=== PATIENT | female | born 1980 | race Caucasian/White ===

== ENCOUNTER 2018-08-09 00:25 | Inpatient (IN) | payer SELFPAY ==
[2018-08-08] MEDS: Lactated Ringers 1,000 ML 50 ML IV (23:00)
[2018-08-08 23:01] VITALS: BMI 47.0
[2018-08-08 23:49] LABS: Absolute Lymphocyte Count 1.95 X10^3/ul (0.83-4.51); Absolute Neutrophil Count 4.7 X10^3/uL (2.0-7.7); Basophil# 0.03 X10^3/uL; Basophil% 0.4 % (0-1); Eosinophil# 0.06 X10^3/uL; Eosinophils% 0.8 % (0-5); Hematocrit 37.2 % (37-47); Hemoglobin 12.2 g/dl (12.0-15.0); Lymphocyte # 1.95 X10^3/ul (4.0); Lymphocyte % 26.6 % (19-41); Mean Corp Hgb Conc 32.8 g/gl (32-36); Mean Corpuscular Hgb 28.4 pg (27.0-32.0); Mean Corpuscular Volume 86.5 fL (81-99); Mean Platelet Vol. 11.2 fl (6.2-12.0); Monocyte# 0.54 X10^3/uL; Monocyte% 7.4 % (0-10); POSITIVE COUNT NO; POSITIVE DIFFERENTIAL NO; POSITIVE MORPHOLOGY NO; Platelet Count 236 K/mm3 (150-450); RBC Distribution Width CV 14.4 % (11.6-14.6); RBC Distribution Width SD 43.9 fl (35.1-43.9); White Blood Count 7.3 K/mm3 (4.4-11.0)
[2018-08-09] VITALS (23 sets, daily range): BP systolic 86–129; BP diastolic 38–74; PULSE 61–82; RESP 16–20; TEMP 36–36.6; O2SAT 94–100
--- NOTE | 2018-08-09 00:30 | PCM.HP.OB ---
- Problem List (1) Breech presentation Status: Acute History Date of Admission: 08/09/18 Final MERI: 07/30/18 Gestational age: 41 Weeks and 3 Days History of this : This is a 38 year-old, , at 41w3d weeks gestational age presents breech presentation. she denies any vb lof admits good fm no regular ctx. Allergies No Known Allergies Allergy (Verified 08/08/18 23:09) Home Medications: Home Medications Vit,Calc76/Iron/Folic [Pnv 29-1 Tablet] 1 tab PO DAILY 08/08/18 Alcohol: None Number of Fetus(es): 1 Heart Tracin moderate variability reactive no decelerations category I tracing [place]: no regular History Past Pregnancies: Past Pregnancies 5 previous term deliveries- one stillborn due to cord accident Expected Infant Delivery Method: Scheduled Section Review of Systems Constitutional: Denies: Fever, Malaise Eyes: Denies: Blurred vision, Vision Change HEENT: Denies: Head Aches, Visual Changes Cardiovascular: Denies: Chest Pain, Palpitations Respiratory: Denies: Cough, Shortness of Breath, Wheezing Gastrointestinal: Denies: Abdominal Pain, Diarrhea, Nausea, Vomiting Genitourinary: Denies: Dysuria, Hematuria Musculoskeletal: Denies: Joint Pain, Muscle pain Skin: Denies: Lesions, Rash Neurological: Denies: Blurred vision, Focal weakness, Headaches Psychiatric: Denies: Anxiety, Depression Endocrine: Denies: Heat/ Cold Intolerance Hematologic/ Lymphatic: Denies: Easy Bruising, Easy Bleeding Physical Exam General: Alert, Cooperative, No apparent distress HEENT: Atraumatic, Normocephalic. Negative for: Thyromegaly, Lymphadenopathy Cardiovascular: Regular rate Lungs: Normal air movement Abdomen: Soft, Non Tender, Gravid Neurological: Deep Tendon Reflexes 2+/4 and Symmetrical, Neuro grossly intact. 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 Negative for: Vulvar lesions Estimated gestational size: Appropriate for gestational size Presentation: Breech Cervix Dilation (cm): 2 Assessment/Plan All Active Problems Breech presentation (Acute) This is a 38 year-old, at 41 weeks gestational age breech presentation plan RLTCS for malpresentation. attempted bedside external cephalic version- pressure was applied to the abdomen and it was attempted to turn both forward and backward roll 2-3 x each and due to the pannus of the patient and the deeply seated buttox into the pelvis, the fetus was unable to be turned.
--- NOTE | 2018-08-09 00:34 | HP.PCM_ITS ---
- Problem List (1) Breech presentation Status: Acute History Date of Admission: 08/09/18 Final MERI: 07/30/18 Gestational age: 41 Weeks and 3 Days History of this : This is a 38 year-old, , at 41w3d weeks gestational age presents breech presentation. she denies any vb lof admits good fm no regular ctx. Allergies No Known Allergies Allergy (Verified 08/08/18 23:09) Home Medications: Home Medications Vit,Calc76/Iron/Folic [Pnv 29-1 Tablet] 1 tab PO DAILY 08/08/18 Alcohol: None Number of Fetus(es): 1 Heart Tracin moderate variability reactive no decelerations category I tracing [place]: no regular History Past Pregnancies: Past Pregnancies 5 previous term deliveries- one stillborn due to cord accident Expected Infant Delivery Method: Scheduled Section Review of Systems Constitutional: Denies: Fever, Malaise Eyes: Denies: Blurred vision, Vision Change HEENT: Denies: Head Aches, Visual Changes Cardiovascular: Denies: Chest Pain, Palpitations Respiratory: Denies: Cough, Shortness of Breath, Wheezing Gastrointestinal: Denies: Abdominal Pain, Diarrhea, Nausea, Vomiting Genitourinary: Denies: Dysuria, Hematuria Musculoskeletal: Denies: Joint Pain, Muscle pain Skin: Denies: Lesions, Rash Neurological: Denies: Blurred vision, Focal weakness, Headaches Psychiatric: Denies: Anxiety, Depression Endocrine: Denies: Heat/ Cold Intolerance Hematologic/ Lymphatic: Denies: Easy Bruising, Easy Bleeding Physical Exam General: Alert, Cooperative, No apparent distress HEENT: Atraumatic, Normocephalic. Negative for: Thyromegaly, Lymphadenopathy Cardiovascular: Regular rate Lungs: Normal air movement Abdomen: Soft, Non Tender, Gravid Neurological: Deep Tendon Reflexes 2+/4 and Symmetrical, Neuro grossly intact. 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 Negative for: Vulvar lesions Estimated gestational size: Appropriate for gestational size Presentation: Breech Cervix Dilation (cm): 2 Assessment/Plan All Active Problems Breech presentation (Acute) This is a 38 year-old, at 41 weeks gestational age breech presentation plan RLTCS for malpresentation. attempted bedside external cephalic version- pressure was applied to the abdomen and it was attempted to turn both forward and backward roll 2-3 x each and due to the pannus of the patient and the deeply seated buttox into the pelvis, the fetus was unable to be turned.
[2018-08-09 03:19] LABS: Bacteria 0 SEEN /hpf (None Seen); Mucous, Urine 0 SEEN /hpf (<or=2+)
[2018-08-09 03:22] LABS: Color, Urine Yellow (Yellow); Glucose, Dipstick Normal (Normal); Ketone-Dipstick Negative (Negative); Leukocyte Esterase-Dipstick 500 /ul (Negative); Nitrite-Dipstick Negative (Negative); Occult Blood-Urine 150 /ul (Negative); Protein-Dipstick Negative (Negative); Urine Bilirubin Dipstick Negative (Negative); Urine Clarity Clear (Clear); Urine Urobilinogen Normal (Normal)
[2018-08-09 03:30] LABS: Red Blood Cells-Urine 0-5 SEEN /hpf (0-5); Squamous Epithelial Cells - UA 10-25 SEEN /hpf (5-10); Transitional Epithelial - Ur 5-10 SEEN /hpf (0-5); White Blood Cells 5-10 SEEN /hpf (0-5)
[2018-08-09 04:00] LABS: Amphetamine Urine VISTA NEGATIVE (<1000 ng/mL); Barbiturate Urine VISTA NEGATIVE (< 200 ng/mL); Benzodiazepine Urine VISTA NEGATIVE (< 200 ng/mL); Cocaine Urine VISTA NEGATIVE (< 300 ng/mL); Ecstacy Urine VISTA NEGATIVE (< 500 ng/mL); Methadone Urine VISTA NEGATIVE (< 300 ng/mL); PCP Urine VISTA NEGATIVE (< 25 ng/mL); THC Urine VISTA NEGATIVE (< 50 ng/mL); Vista UDS pH Range 5
[2018-08-09 04:29] LABS: Rubella IgG 227.6 IU/mL
[2018-08-09 04:58] LABS: HIV - WCH Non-Reactive (Nonreactive)
[2018-08-09] MEDS: Sodium Citrate/Citric Acid 30 ML UDC PO (05:01)
[2018-08-09] MEDS: Lactated Ringers 1,000 ML 999 ML IV (05:01)
--- NOTE | 2018-08-09 05:36 | OP.PCM_ITS ---
Problem List (1) Breech presentation Status: Acute Report of Operation Date of Procedure: 08/09/18 Pre-Operative Diagnosis: breech Post-Operative Diagnosis: same Surgery/Procedure Performed:: LTCS flavor extractor: Benigno Boyle Type of Anesthesia:: Spinal Special Medications: none Specimen's removed: infant Drains: millan Fluids Replaced: crystalloid Description of Procedure: The patient is a 38-year-old at 41 weeks 3 days presented for breech presentation with spontaneous rupture of membranes requiring . Spinal anesthesia was placed without difficulty. Millan catheter was placed. The patient was placed in the dorsal supine position with leftward tilt. Patient was prepped and draped in the normal sterile fashion. Pfannenstiel skin incision was made with the scalpel and carried through to the underlying layer of fascia with the scalpel. Fascia was nicked in the midline and the incision extended laterally. The rectus bellies were dissected off superiorly and inferiorly with out complication both sharply and bluntly. The peritoneum was entered digitally. The incision was stretched and a low transverse uterine incision was made with the scalpel. The 's head was delivered atraumatically followed by the anterior and posterior shoulders without complication the rest of the infant delivered. The cord was clamped and cut and the infant was handed off to awaiting nurse. The placenta was delivered s pontaneously immediately following and was noted to be intact and have a three- vessel cord. The uterus was exteriorized cleared of all clots and debris, and the incision was closed in a double layer closure using #1 Monocryl. The uterus was returned to the maternal abdomen and gutters were cleared of all clots and debris. The ovaries and fallopian tubes were noted to be within normal limits. The peritoneum was closed with 3-0 Monocryl in a running fashion. Fascia was closed with 0 PDS in a running fashion. Subcutaneous tissue was copiously irrigated and the skin was closed with 3-0 Monocryl in a subcuticular fashion. Steri-Strips and Mepilex dressing were applied without complication. Patient was taken to recovery in stable condition. - Complications none - Admit VTE Documentation VTE Present on Admission: No VTE Mechan Device Prophylaxis: SCD's
[2018-08-09] MEDS: Oxytocin 30 units/NS 500 ml 30 UNITS/500 ML IV.SOLN 167 UNITS IV (05:58)
[2018-08-09 06:41] LABS: Chlamydia Trachomatis by PCR Negative (Negative); Neisserai gonorrhoeae by PCR Negative (Negative); Probe Check PASS; Sample Adequacy Control PASS; Specimen Processing Control PASS
[2018-08-09] MEDS: Lactated Ringers 1,000 ML 100 ML IV ×2 (11:36→17:28)
[2018-08-09] MEDS: Ketorolac 30 MG/ML Syringe IV ×2 (12:02→17:28)
[2018-08-09] MEDS: Enoxaparin 40 MG/0.4 ML Syringe SC (17:28)
[2018-08-10 00:05] VITALS: BP 97/45; PULSE 78; RESP 18; TEMP 36.1; O2SAT 100
[2018-08-10] MEDS: 0.9% Saline Lock 10 ML Syringe IV ×3 (00:43→12:16)
[2018-08-10] MEDS: Ketorolac 30 MG/ML Syringe IV ×3 (00:43→12:16)
[2018-08-10 01:30] LABS: Rapid Plasmin Reagin (RPR) NONREACTIVE (NONREACTIVE)
[2018-08-10 02:05] VITALS: PULSE 91; RESP 18; O2SAT 96
[2018-08-10] MEDS: Lactated Ringers 1,000 ML 100 ML IV (03:24)
[2018-08-10 04:35] VITALS: PULSE 80; RESP 18; O2SAT 96
[2018-08-10 04:49] VITALS: BP 101/54; PULSE 82; RESP 18; TEMP 36.4; O2SAT 99
[2018-08-10] MEDS: Enoxaparin 40 MG/0.4 ML Syringe SC (05:08)
[2018-08-10 05:25] LABS: Hematocrit 30.4 % (37-47); Mean Corp Hgb Conc 32.9 g/gl (32-36); Mean Corpuscular Hgb 28.2 pg (27.0-32.0); Mean Corpuscular Volume 85.6 fL (81-99); Mean Platelet Vol. 10.1 fl (6.2-12.0); Platelet Count 195 K/mm3 (150-450); RBC Distribution Width CV 14.4 % (11.6-14.6); RBC Distribution Width SD 45.4 fl (35.1-43.9); Red Blood Count 3.55 M/mm3 (4.2-5.4); White Blood Count 6.1 K/mm3 (4.4-11.0)
[2018-08-10 05:35] LABS: Scan Indicated on CBC? Y/N NO
--- NOTE | 2018-08-10 08:01 | DCINST_ITS ---
Discharge Diet: No Restrictions Discharge Activity: May Not Drive - for 2 weeks, May not drive while taking narcotic pain medications., May Shower, May Take a Tub Bath - in 7 days May resume sexual activity in: 4-6 weeks Lifting Restrictions: 20 pounds Additional Activity Instructions:: Nothing in the vagina for 4-6 weeks. You may return to work/school in 6 weeks. Call your doctor if your incision/area has: Continuous Slow Oozing, Sudden Increased Bleeding, Increased Pain/ Swelling, Increased Redness, Foul Smelling Discharge Call your doctor if you observe: Fever of 101 or Higher, Using more than one pad per hour - for 2 hours Suture Line Care: Avoid Pulling/Pushing, Avoid Pinching/Bending Cleanse incision/area with: Keep Dressing Clean & Dry Additional Instructions: If you experience any of the following, contact your healthcare provider. * Bleeding that soaks a pad every hour for 2 hours * Fever 100.4 or higher * Unrelieved incision or abdominal pain * Swelling, redness, discharge or bleeding from your incision or episiotomy site * Your incision begins to separate * Problems urinating (including inability to urinate or burning while urinating). * Visual changes * Severe headache * Flu-like symptoms * Pain or redness in one of both of your breasts * Pain, warmth, tenderness or swelling in your legs, especially the calf area * Frequent nausea and vomiting * Symptoms of depression or anxiety If you experience any of the following, call 911 or go to the nearest Emergency Room. * Chest pain * Problems breathing * Seizure activity * Partial or complete paralysis of a body part, slurred speech, weakness or drooping of the face, or a sudden inability to walk or hold your balance Allergies/Adverse Reactions: Allergies No Known Allergies Allergy (Verified 08/08/18 23:09) Medications to take at Discharge Vit,Calc76/Iron/Folic [Pnv 29-1 Tablet] 1 tab PO DAILY 08/08/18 Naproxen [Naprosyn] 250 - 500 mg PO Q8H PRN PRN #30 tab 08/10/18 Oxycodone HCl/Acetaminophen [Percocet 5-325] 1 - 2 tab PO Q4H PRN PRN 7 Days #15 tab 08/10/18 The following prescriptions were given: Oxycodone HCl/Acetaminophen [Percocet 5-325] 1 - 2 tab PO Q4H PRN PRN 7 Days #15 tab PRN Reason: Pain Naproxen [Naprosyn] 250 - 500 mg PO Q8H PRN PRN #30 tab PRN Reason: MILD PAIN Follow-Up: Call to make an appointment with your doctor for an incision check in 1-2 weeks. You will also need a 6 week post- follow up appointment. Test results from this visit will be discussed in further detail at your follow- up appointment, if applicable. Please Follow Up With: Amy Burns MD - Call to make an appointment for an incision check in 1-2 [phone] When: You will need a post- check in 6 weeks.
--- NOTE | 2018-08-10 08:01 | PCM.PN.OB ---
Subjective: doing well no complaints pain controlled no CP SOB N V ambulating well tolerating po lochia moderate, going well - Physical Exam General: Alert Vital Signs Temp Pulse Resp BP Pulse Ox 97.5 F L 82 18 101/54 L 99 08/10/18 04:49 08/10/18 04:49 08/10/18 04:49 08/10/18 04:49 08/10/18 04:49 Oxygen Delivery Method Room Air Weight: 300 lb 0.786 oz Body Mass Index (BMI) 47.0 Intake and Output for Last 24 Hours 08/08/18 08/09/18 08/10/18 23:59 23:59 23:59 Intake Total 4351 / 4351 1359 / 1359 Output Total 2800 / 2800 1800 / 1800 Balance 1551 / 1551 -441 / -441 Laboratory Tests Past 24 Hrs 08/09/18 08/10/18 03:10 05:05 WBC 6.1 RBC 3.55 L Hgb 10.0 L Hct 30.4 L MCV 85.6 MCH 28.2 MCHC 32.9 RDW 14.4 RDW Differential 45.4 H Plt Count 195 MPV 10.1 RPR NONREACTIVE Medical Necessity - Tobacco Use Smoking Status: Never smoker Assessment/Plan All Active Problems Breech presentation (Acute) s/p LTCS PPD # 1 1. routine post care 2. breast feeding- support given 3. rh positive dc home per patient's request patient declined further antibody screening due to cost of test, I discussed with her chief of internal medicine the importance of this and if she wants future testing she can always call for it
[2018-08-10 08:20] VITALS: BP 117/51; PULSE 68; RESP 16; TEMP 36.7; O2SAT 98
[2018-08-10 12:42] LABS: HEPATITIS B SURFACE AG Negative (Negative); Hep C Antibodies <0.1 s/co ratio (0.0-0.9)
[2018-08-10 15:24] VITALS: BP 127/55; PULSE 98; RESP 18; TEMP 36.9; O2SAT 96
[2018-08-10] MEDS: Acetaminophen 500 MG Tablet 1000 MG PO (15:50)
== END 2018-08-10 16:05 | disposition home or self-care (01) | DRG 788 ==
LOC: WPOUT 00:29
PROVIDERS: Admitting Provider Obstetrics & Gynecology; Referring Provider Obstetrics & Gynecology; Visit Provider Obstetrics & Gynecology
DX: O64.1XX0 Obstructed labor due to breech presentation, not applicable or unspecified (principal); Z3A.41 41 weeks gestation of pregnancy; Z37.0 Single live birth
CPT/HCPCS: 59025; 59050; 59412; 76815; 80307; 81001; 85025; 85027; 86592; 86703; 86762; 86803; 86850; 86870; 86900; 87340; 87491; 87591; 99218; J7120; A4216; G0378; J2405

== ENCOUNTER → 2020-05-22 12:14 | Outpatient (CLI) | payer SELFPAY ==
[2020-05-22 11:34] VITALS: BMI 48.9
[2020-05-22 13:01] LABS: Absolute Lymphocyte Count 1.55 X10^3/uL (0.83-4.51); Basophil# 0.03 X10^3/uL; Basophil% 0.5 % (0-1); Eosinophil# 0.05 X10^3/uL; Eosinophils% 0.8 % (0-5); Hematocrit 33.7 % (37-47); Hemoglobin 11.3 g/dL (12.0-15.0); Lymphocyte # 1.55 X10^3/ul (4.0); Lymphocyte % 25.6 % (19-41); Mean Corp Hgb Conc 33.5 g/dL (32-36); Mean Corpuscular Hgb 28.7 pg (27.0-32.0); Mean Corpuscular Volume 85.5 fL (81-99); Mean Platelet Vol. 9.8 fl (6.2-12.0); Monocyte# 0.38 X10^3/uL; Monocyte% 6.3 % (0-10); NRBC Flagged by Analyzer 0 % (0-5); Neutrophil # 3.97 X10^3/uL (2.7-7.7); Neutrophil % 65.6 % (47-70); Platelet Count 243 K/mm3 (150-450); RBC Distribution Width CV 14.2 % (11.6-14.6); RBC Distribution Width SD 43.8 fl (35.1-43.9); Red Blood Count 3.94 M/mm3 (4.2-5.4); White Blood Count 6.1 K/mm3 (4.4-11.0)
[2020-05-22 13:32] LABS: Rubella IgG Reactive (Nonreactive)
== END ==
PROVIDERS: Referring Provider Obstetrics & Gynecology; Visit Provider Obstetrics & Gynecology
DX: Z34.90 Encounter for supervision of normal pregnancy, unspecified, unspecified trimester (principal)
CPT/HCPCS: 36415; 83036; 85025; 86762; 87077; 87081; 87186

== ENCOUNTER → 2020-05-28 15:23 | Outpatient (CLI) | payer SELFPAY ==
[2020-05-22 11:34] VITALS: BMI 48.9
[2020-05-28 09:44] VITALS: BMI 49.0
--- NOTE | 2020-05-28 15:26 | US_ITS ---
STUDY: SECOND AND THIRD TRIMESTER OBSTETRICAL ULTRASOUND REASON FOR EXAM: Female, 40 years old. Anatomy. 37 weeks, 2 days. LMP: Established due date of 06/16/2020. TECHNIQUE: Transabdominal TECHNICAL QUALITY: Adequate. PRIOR ULTRASOUND: None. FINDINGS: There is a single intrauterine fetus. The fetus is in a cephalic presentation. There is demonstrated cardiac activity with a heart rate of 143 bpm. There is a normal amniotic fluid volume. The largest amniotic fluid pocket measures 8.03 cm. The amniotic fluid index (LEATHA) is 18.56 cm. The placenta is anterior in location and is not low lying. There are Grade 3 placental changes. The cervix is obscured. BIOMETRY: BPD: 8.94 cm: 36 weeks, 1 days HC: 38.81 cm: 38 weeks, 5 days AC: 34.62 cm: 38 weeks, 3 days FL: 6.8 cm: 34 weeks, 6 days CI: 74.88 FL/BPD: 76.08 FL/HC: 20.12 FL/AC: 19.65 HC/AC: 0.98 age by current US: 37 weeks, 0 days. MERI by current US: 06/18/2020. Estimated weight: 3183 grams, +/- 478 grams, 60 %. Age by LMP: 37 weeks, 2 days. MERI by LMP: 06/16/2020. ANATOMY: Gender: Male Cranium: The lateral ventricles are non-visualized. The choroid plexus is non-visualized. The cerebellum is non-visualized.. The cisterna magna is non-visualized. The face, nose and lips are not visualized. Chest: Normal 4-chamber heart. Abdomen/Pelvis: The diaphragm is non-visualized. The stomach is non-visualized. The abdominal wall is non-visualized. The cord insertion is non-visualized. The cord vessels are non-visualized. The kidneys are non-visualized. The bladder is non-visualized. Spine: Normal cervical spine. Normal thoracic spine. Normal lumbar spine. Normal sacrum. Extremities: Normal bilateral upper extremities. Only one of the lower extremities is visualized. US/OB Anatomy Scan IMPRESSION: 1. Live single intrauterine 37 weeks, 0 days. MERI is 06/18/2020. 2. EFW of 3183 g. 3. LEATHA of 18.56 cm. 4. Anterior grade 3 placenta. 5. Vertex presentation. 6. Markedly limited evaluation of anatomy due to advanced age and maternal obesity. Electronically Signed: Rick Way DO at 23:13 EST Tel [phone], Service support ,
== END ==
PROVIDERS: Referring Provider Obstetrics & Gynecology; Visit Provider Obstetrics & Gynecology
DX: Z34.90 Encounter for supervision of normal pregnancy, unspecified, unspecified trimester (principal)
CPT/HCPCS: 76805

== ENCOUNTER → 2020-05-28 | Outpatient (CLI) | payer SELFPAY ==
[2020-05-28 09:44] VITALS: BMI 49.0
== END | disposition home or self-care (01) ==
LOC: LABSPEC 12:53
PROVIDERS: Referring Provider Obstetrics & Gynecology; Visit Provider Obstetrics & Gynecology
DX: O09.93 Supervision of high risk pregnancy, unspecified, third trimester (principal); Z3A.00 Weeks of gestation of pregnancy not specified
CPT/HCPCS: 87086; 87088

== ENCOUNTER → 2020-06-04 11:53 | Outpatient (CLI) | payer SELFPAY ==
[2020-06-04 11:14] VITALS: BMI 49.4
[2020-06-04 12:52] LABS: ALB/GLOB Ratio 0.6 RATIO (0.9-2.4); AST(SGOT) 12 U/L (15-37); Alanine Aminotransfer ALT/SGPT 18 U/L (13-56); Albumin, Serum 2.5 g/dL (3.2-5.0); Alkaline Phosphatase 165 U/L (45-117); Anion Gap 7 (5-15); BUN 10 mg/dL (7-18); BUN/Creat Ratio 15.3 RATIO (10-20); Chloride 107 mmol/L (98-107); Creatinine, Serum 0.65 mg/dL (0.55-1.02); EST Glomerular Filtration Rate 108 mL/min (>60); Est Glom Filt Rate - Afr Amer 130 mL/min (>60); Globulin 4.3 g/dL (2.2-4.2); Glucose 96 mg/dL (74-106); Protein, Total 6.8 g/dL (6.4-8.2); Sodium Level 136 mmol/L (136-145)
== END ==
PROVIDERS: Visit Provider Obstetrics & Gynecology
DX: L29.9 Pruritus, unspecified (principal)
CPT/HCPCS: 36415; 80053

== ENCOUNTER 2020-06-12 00:45 | Inpatient (IN) | payer SELFPAY ==
[2020-06-11 08:55] VITALS: BMI 49.8
[2020-06-12] VITALS (55 sets, daily range): BP systolic 90–140; BP diastolic 41–78; PULSE 69–166; RESP 16–18; TEMP 35.6–37.3; O2SAT 83–100; BMI 50.1
[2020-06-12 00:41] LABS: ROM Internal Control Test YES-OK TO RESULT pt. (Internal QC)
[2020-06-12 00:42] LABS: ROM Patient Test POSITIVE (Negative)
[2020-06-12] MEDS: Lactated Ringers 1,000 ML 50 ML IV (01:30)
[2020-06-12 01:53] LABS: Mucous, Urine 0 SEEN /hpf (<or=2+); Red Blood Cells-Urine 0 SEEN /hpf (0-5)
[2020-06-12 01:57] LABS: Absolute Lymphocyte Count 1.72 X10^3/uL (0.83-4.51); Absolute Neutrophil Count 4.8 X10^3/uL (2.0-7.7); Basophil# 0.03 X10^3/uL; Basophil% 0.4 % (0-1); Color, Urine Yellow (Yellow); Eosinophil# 0.06 X10^3/uL; Eosinophils% 0.9 % (0-5); Glucose, Dipstick Normal (Normal); Hematocrit 33.3 % (37-47); Hemoglobin 11.3 g/dL (12.0-15.0); Ketone-Dipstick Negative (Negative); Leukocyte Esterase-Dipstick 100 /ul (Negative); Lymphocyte # 1.72 X10^3/ul (4.0); Lymphocyte % 24.4 % (19-41); Mean Corp Hgb Conc 33.9 g/dL (32-36); Mean Corpuscular Hgb 28.8 pg (27.0-32.0); Mean Corpuscular Volume 84.7 fL (81-99); Mean Platelet Vol. 10.1 fl (6.2-12.0); Monocyte# 0.33 X10^3/uL; Monocyte% 4.7 % (0-10); NRBC Flagged by Analyzer 0 % (0-5); Neutrophil # 4.82 X10^3/uL (2.7-7.7); Neutrophil % 68.3 % (47-70); Nitrite-Dipstick Negative (Negative); Occult Blood-Urine Negative /ul (Negative); Platelet Count 250 K/mm3 (150-450); Protein-Dipstick Negative (Negative); RBC Distribution Width CV 14.2 % (11.6-14.6); RBC Distribution Width SD 43.6 fl (35.1-43.9); Red Blood Count 3.93 M/mm3 (4.2-5.4); Urine Bilirubin Dipstick Negative (Negative); Urine Clarity Clear (Clear); Urine Urobilinogen Normal (Normal); White Blood Count 7.1 K/mm3 (4.4-11.0)
[2020-06-12 02:03] LABS: Bacteria RARE /hpf (None Seen); Squamous Epithelial Cells - UA 0-5 SEEN /hpf (5-10); White Blood Cells 10-25 SEEN /hpf (0-5)
[2020-06-12 02:11] LABS: Amphetamine Urine VISTA NEGATIVE (<1000 ng/mL); Barbiturate Urine VISTA NEGATIVE (< 200 ng/mL); Benzodiazepine Urine VISTA NEGATIVE (< 200 ng/mL); Cocaine Urine VISTA NEGATIVE (< 300 ng/mL); Ecstacy Urine VISTA NEGATIVE (< 500 ng/mL); Methadone Urine VISTA NEGATIVE (< 300 ng/mL); PCP Urine VISTA NEGATIVE (< 25 ng/mL); THC Urine VISTA NEGATIVE (< 50 ng/mL); Vista UDS pH Range 5
[2020-06-12 03:27] LABS: Chlamydia Trachomatis by PCR Negative (Negative); Neisserai gonorrhoeae by PCR Negative (Negative); Probe Check PASS; Sample Adequacy Control PASS; Specimen Processing Control PASS
[2020-06-12] MEDS: Oxytocin 30 units/NS 500 ml 30 UNITS/500 ML IV.SOLN IV (06:06)
--- NOTE | 2020-06-12 08:31 | HP.PCM_ITS ---
- Problem List (1) Full-term premature rupture of membranes Status: Acute (2) 37 weeks gestation of Status: Acute Comment: electronic covid test ordered 06/01/20 (3) Generalized pruritus Status: Acute Comment: cmp and bile acids ordered 06/04, reviewed fm precautions (4) History of delivery Status: Acute Comment: 3 then cs for breech by SM. plan TOLAC (5) Obesity affecting in third trimester Status: Acute (6) Positive GBS test Status: Acute Comment: plan PCN in labor (7) Status: Acute Qualifiers: Comment: urine culture at next visit. t and s, cbc ,rubella ,glucose HgA1c. RADHA from [facility] due to anemia (8) Supervision of high risk in third trimester Status: Acute Comment: PRR (limited, open to all at delivery including covid) RADHA [facility] 36 weeks. 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 Jerri Castaneda MD) Smoking Status: Never smoker alcohol intake: never substance use type: does not use caffeine: Yes Type: tea what type of physical activity do you participate in: none seatbelt use: always do you feel safe at home: Yes additional social history: Josse Pregancy History 17 Elective abortions 0 Hx Para 5 Spontaneous abortions 12 Hx # Term Pregnancies 5 Ectopic pregnancies 0 Hx # Pregnancies 0 Multiple births 0 # of living children 5 Past Pregnancies Del. Date Name GA/Weeks Outcome Route Bth Weight Gen Labor Lgth Anesthesia Del Locatn Provider FOB Unknown 2018 Dalila 42 live - full term C- section Female [facility] SM SM Unknown 2005 still still Unknown 2006 Germania 42 live - full term NS VD [place] 2006 Jo[place] 37 live - full term NS VD [place] Unknown 2010 Coby 40 live - full term NS VD Female [facility] Unknown 2012 Alize 42 live - full term NS VD Female [employer] [facility] HPI 39WK OB : Details: GIORGI HURLEY is a 40 year old who presents for routine OB visit. OB Visit MERI Calculator Estimated Delivery Date Method Current WG Current Estimate 06/16/20 LMP (Certain) 39w 2d Other Estimates 06/15/20 Manual 39w 3d Expected Delivery Route/Plan TOLAC late transfer of care from [place] [facility] due to anemia. previous x 3 then cs for breech patient counseled regarding risks/benefits of trial of labor versus repeat . ACOG/uptodate education given to patient. 54 % likelihood of success per calculator TOLAC consent form signed: yes Labor Preferences- CB/BF classes: NA labor support person: Josse labor intervention preferences: open to standard interventions pain management options preferred: desires natural labor, open to having epidural placed but not dosed cut cord/dad catch: yes :[] PP control planned: [] discussed possible routes of delivery and associated risks: discussed possible delivery modalities and possible indications for each including R/B/A of , VAVD, FAVD, and CS. questions answered. special requests: none Specific Issue/Plans flu vaccine: decline tdap vaccine: decline rhogam: na LARC form signed: [] movement and labor precautions reviewed. Problem list reviewed and updated with the most current plan of care details and appropriate orders placed. Relevant counseling for the gestational age provided. Continue routine care and follow up unless otherwise noted in visit notes/problem list details Initial Weight: Not Recorded Date EGA Weight BP Urine Prot Glucose FHR FuHt Pres Dilation Effaced St Visit Note 05/22/20 36w 3d 303 lb 110/82 150 37 Cephalic 1 Sm- no vb lof good fm no regular ctx RADHA from [facility] 05/28/20 37w 2d 304 lb 122/86 150 39 Cephalic 1 Sm- no vb lof some decreased movement, anatomy us today. Sm- no vb lof some decreased movement, anatomy us today. will get nst now. reviewed labs 06/04/20 38w 2d 306 lb 102/70 Negative Negative 145 40 Cephalic 1 SM- no vb lof good fm no regular ctx. co generalized pruritis recommend checking cmp and bile acids now reviwed fm precautions. patient declines covid testing as OP but okay to have day of delivery 06/11/20 39w 2d 309 lb 124/72 140 40 Cephalic 1 40 -3 GP - no LOF, VB, DFM, ctx . TOLAC consent signed. Discussed labor preferences and routes of delivery. ACOG First Trimester First Trimester: Diagnostics Diagnostics Diagnostics Blood Type O POSITIVE 08/08/18 Antibody Screen Not Reportable 08/08/18 HIV 1&2 Antibody Non-Reactive (Nonreactive) 08/09/18 Rubella IgG Antibody Reactive (Nonreactive) 05/22/20 Hgb 11.3 g/dL (12.0-15.0) L 05/22/20 Hct 33.7 % (37-47) L 05/22/20 RPR NONREACTIVE (NONREACTIVE) 08/09/18 Details: HIV: Urine Culture: Sequential Screen: NIPT Screen: ROS Const Reports system reviewed and no additional complaints, except as docu Eyes Reports system reviewed and no additional complaints, except as docu ENT Reports system reviewed and no additional complaints, except as docu Card Reports system reviewed and no additional complaints, except as docu Resp Reports system reviewed and no additional complaints, except as docu GI Reports system reviewed and no additional complaints, except as docu Reports system reviewed and no additional complaints, except as docu, Denies abnormal vaginal bleeding, Denies painful urination, Denies pelvic pain, Denies vaginal discharge, Denies vaginal odor, Denies vaginal itching Musc Reports system reviewed and no additional complaints, except as docu Skin/Breast Reports system reviewed and no additional complaints, except as docu Neuro Yes system reviewed and no additional complaints, except as docu Psych Reports system reviewed and no additional complaints, except as docu Endo Reports system reviewed and no additional complaints, except as docu Exam Const General: cooperative, healthy appearing, comfortable, no acute distress, well developed, well groomed Nutritional Appearance: average body habitus, well nourished Orientation: alert, awake, oriented x3 HENMT Head: normal to inspection, normocephalic, atraumatic Eyes Pupils: PERRL, accommodation normal Resp Effort & Inspection: normal respiratory effort, able to speak in complete sentences, symmetric chest movement Cardio Rate: regular rate GI Palpation: soft, no guarding, no masses, nontender Skin General: no rashes or lesions noted, elasticity normal, turgor normal Neuro General: alert, awake, oriented x3 Cranial Nerves: CN's II-XI intact bilaterally, sense of smell intact, PERRL, accommodation normal, EOM intact bilaterally Speech: speech normal Gait: normal gait Psych Appearance: grossly normal, well kempt Mental Status: mental status grossly normal Mood: congruent mood Affect: normal affect Speech and Movement: speech and movement normal Attitude: cooperative Thought Process: normal Thought Content: normal Judgment: judgment good Assessment & Plan 1. Generalized pruritus L29.9 cmp and bile acids ordered 06/04, reviewed fm precautions 2. 37 weeks gestation of Z3A.37 electronic covid test ordered 06/01/20 3. negative IgG antibody 4. Positive GBS test B95.1 plan PCN in labor 5. 39 weeks gestation of Z3A.39 urine culture at next visit. t and s, cbc ,rubella ,glucose HgA1c. RADHA from [facility] due to anemia 6. History of delivery Z98.891 3 then cs for breech by . plan TOLAC 7. Supervision of high risk in third trimester O09.93 PRR (limited, open to all at delivery including covid) RADHA [facility] 36 weeks. 8. Obesity affecting in third trimester O99.213 UPDATE- I have seen the patient and performed any clinically relevant updates to the history and physical exam. Jerri Castaneda MD
[2020-06-12 08:49] LABS: HIV - WCH Non-Reactive (Nonreactive); Hepatitis B Surface Antigen Non-Reactive (Nonreactive); Hepatitis C Antibody Non-Reactive (Nonreactive)
[2020-06-12] MEDS: Lactated Ringers 500 ML 999 ML IV ×3 (11:06→23:15)
[2020-06-12] MEDS: fentaNYL-bupivacaine (epidural) 100 ML BAG EPIDURAL ×2 (11:54→16:13)
[2020-06-12] MEDS: Lactated Ringers 1,000 ML 200 ML IV ×2 (15:00→18:26)
[2020-06-12] MEDS: Sodium Citrate/Citric Acid 30 ML UDC PO (20:30)
[2020-06-12] MEDS: Oxytocin 30 units/NS 500 ml 30 UNITS/500 ML IV.SOLN 167 UNITS IV (22:06)
--- NOTE | 2020-06-12 22:39 | PCM.OPRPT ---
Problem List (1) Full-term premature rupture of membranes Status: Acute (2) 37 weeks gestation of Status: Acute Comment: electronic covid test ordered 06/01/20 (3) Generalized pruritus Status: Acute Comment: cmp and bile acids ordered 06/04, reviewed fm precautions (4) History of delivery Status: Acute Comment: 3 then cs for breech by SM. plan TOLAC (5) Obesity affecting in third trimester Status: Acute (6) Positive GBS test Status: Acute Comment: plan PCN in labor (7) Status: Acute Qualifiers: Comment: urine culture at next visit. t and s, cbc ,rubella ,glucose HgA1c. RADHA from rita moreno due to anemia (8) Supervision of high risk in third trimester Status: Acute Comment: PRR (limited, open to all at delivery including covid) RADHA Rita Moreno 36 weeks. 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 Patient was augmented with Pitocin. Patient had an intermittent category 2 heart rate tracing throughout the day that had previously resolved with conservative measures. After patient made change to 6 cm, heart rate tracing became persistently category 2. The patient initially made cervical change to 7 cm, but heart rate tracing was persistently category 2 for an hour with no further cervical change and heart rate tracing did not improve after discontinuation of Pitocin. Given persistent category 2 heart rate tracing with inability to augment, decision was made to proceed with repeat section. The risk, benefits, indications, and alternatives to the procedure were discussed the patient including bleeding, infection, and visceral or vascular injury. The patient voiced understanding and agreed to proceed. Indications for : Distress Description of Procedure: The patient is a G 17 P5 presented for repeat for persistent category 2 heart rate tracing and failed trial of labor after . Spinal anesthesia was placed without difficulty. Gil catheter was placed. The patient was placed in the dorsal supine position with leftward tilt. Patient was prepped and draped in the normal sterile fashion. Pfannenstiel skin incision was made with the scalpel and carried through to the underlying layer of fascia with the scalpel. Fascia was nicked in the midline and the incision extended laterally. The rectus bellies were dissected off superiorly and inferiorly with out complication both sharply and bluntly. The peritoneum was entered digitally. The incision was stretched and a low transverse uterine incision was made with the scalpel. The 's head was delivered atraumatically followed by the anterior and posterior shoulders without complication the rest of the infant delivered. The cord was clamped and cut and the infant was handed off to awaiting nurse. The placenta was delivered spontaneously immediately following and was noted to be intact and have a three-vessel cord. The uterus was exteriorized cleared of all clots and debris, and the incision was closed in a double layer closure using #1 Monocryl. The ovaries and fallopian tubes were noted to be within normal limits. The uterus was returned to the maternal abdomen and gutters were cleared of all clots and debris. The peritoneum was closed with 3-0 Monocryl in a running fashion. Gloves were changed prior to fascial closure. Fascia was closed with 0 PDS in a running fashion. Subcutaneous tissue was copiously irrigated and the skin was closed with 3-0 Monocryl in a subcuticular fashion. Mepilex dressing was applied without complication. Patient was taken to recovery in stable condition. It was discussed with the patient that based on the clinical information obtained during this encounter, combined with her history I feel that she would be a candidate for a trial of labor in the future if she desires. Amniotic Membrane Rupture Type: Spontaneous Amniotic Fluid Description: Clear Placenta Disposition: [facility] Drain: Gli to straight drain Fluids Replaced: 1200 cc Cord Entanglement: Around neck x 1, tight Nuchal Cord Compression: With compression Cord Vessel Description: 3 Vessels Esitmated Blood Loss (ml): 500 cc Gender: Male Delayed cord clamping: No Antibiotic Given: Ancef 3 grams IV x1, Zithromax 500 mg/5 mL X1 Pt instructed on risks of surgery: Bleeding, Anesthesia Risks, Infection, Injury to surrounding structure(s) including bowel and bladder Complications: None - Admit VTE Documentation VTE Present on Admission: No VTE Mechan Device Prophylaxis: SCD's VTE Pharm Prophylaxis ordered?: Yes Multi Select Codes - Urinary/Genital Urinary/Genital CPT Codes: 98152 failed
--- NOTE | 2020-06-12 22:51 | DCINST_ITS ---
Discharge Diet: No Restrictions Discharge Activity: May Not Drive - for 2 weeks or while taking narcotic pain meds., May Shower, May Take a Tub Bath - in 7 days. May resume sexual activity in: 4-6 weeks Lifting Restrictions: 20 pounds Additional Activity Instructions:: Nothing in the vagina for 4-6 weeks. You may return to work/school in 6 weeks. Call your doctor if your incision/area has: Continuous Slow Oozing, Sudden Increased Bleeding, Increased Pain/ Swelling, Increased Redness, Foul Smelling Discharge Call your doctor if you observe: Fever of 101 or Higher Suture Line Care: Avoid Pulling/Pushing, Avoid Pinching/Bending Additional Instructions: If you experience any of the following, contact your healthcare provider. * Bleeding that soaks a pad every hour for 2 hours * Fever 100.4 or higher * Unrelieved incision or abdominal pain * Swelling, redness, discharge or bleeding from your incision or episiotomy site * Your incision begins to separate * Problems urinating (including inability to urinate or burning while urinating). * Visual changes * Severe headache * Flu-like symptoms * Pain or redness in one of both of your breasts * Pain, warmth, tenderness or swelling in your legs, especially the calf area * Frequent nausea and vomiting * Symptoms of depression or anxiety If you experience any of the following, call 911 or go to the nearest Emergency Room. * Chest pain * Problems breathing * Seizure activity * Partial or complete paralysis of a body part, slurred speech, weakness or drooping of the face, or a sudden inability to walk or hold your balance Allergies/Adverse Reactions: Allergies No Known Allergies Allergy (Verified 06/12/20 00:37) Medications to take at Discharge vitamin#30 30 mg iron-10 mg iron-folic acid 1 mg-omg3 capsule 1 cap PO DAILY 05/22/20 Follow-Up: Call to make an appointment with your doctor for an incision check in 1-2 weeks. You will also need a 6 week post- follow up appointment. Test results from this visit will be discussed in further detail at your follow- up appointment, if applicable. Primary Care Physician: Care Physician,No Primary [Primary Care Provider] -
[2020-06-13] VITALS (17 sets, daily range): BP systolic 87–110; BP diastolic 39–55; PULSE 65–88; RESP 14–18; TEMP 36.1–36.7; O2SAT 94–99
--- NOTE | 2020-06-13 00:08 | NURSING ---
Epidural catheter removed, blue tip intact.
[2020-06-13] MEDS: Acetaminophen 500 MG Tablet 1000 MG PO ×4 (01:15→19:52)
[2020-06-13] MEDS: Lactated Ringers 1,000 ML 100 ML IV (01:16)
[2020-06-13] MEDS: Ketorolac 30 MG/ML Syringe IV ×4 (03:31→21:49)
[2020-06-13 05:08] LABS: Hematocrit 30.4 % (37-47); Mean Corp Hgb Conc 32.9 g/dL (32-36); Mean Corpuscular Hgb 28.7 pg (27.0-32.0); Mean Corpuscular Volume 87.4 fL (81-99); Mean Platelet Vol. 10.2 fl (6.2-12.0); Platelet Count 211 K/mm3 (150-450); RBC Distribution Width CV 14.4 % (11.6-14.6); RBC Distribution Width SD 44.9 fl (35.1-43.9); Red Blood Count 3.48 M/mm3 (4.2-5.4)
[2020-06-13] MEDS: Senna/Docusate Sodium 1 Tablet PO (09:29)
[2020-06-13] MEDS: Enoxaparin 40 MG/0.4 ML Syringe SC ×2 (09:29→21:56)
--- NOTE | 2020-06-13 10:13 | NURSING ---
Pt has tried to use the restroom twice since millan catheter removed with no success. Will try one more time then will have to straight cath. Pt aware and agrees with plan.
--- NOTE | 2020-06-13 10:16 | PN.OBGYN_ITS ---
Patient Problems: Active and Suspected Problems (Last Reviewed 06/11/20 @ 08:55 by Julissa Hernandez) Full-term premature rupture of membranes (Acute) Generalized pruritus (Acute) cmp and bile acids ordered 06/04, reviewed fm precautions 37 weeks gestation of (Acute) electronic covid test ordered 06/01/20 negative IgG antibody (Acute) Positive GBS test (Acute) plan PCN in labor (Acute) urine culture at next visit. t and s, cbc ,rubella ,glucose HgA1c. RADHA from rita moreno due to anemia History of delivery (Acute) 3 then cs for breech by SM. plan TOLAC Supervision of high risk in third trimester (Acute) PRR (limited, open to all at delivery including covid) RADHA Rita Moreno 36 weeks. Obesity affecting in third trimester (Acute) Subjective: Patient doing well without complaints. Tolerating PO. Ambulating and voiding without difficulty. Breast feeding well. Denies chest pain, shortness of breath, calf pain/swelling, fevers, chills, lightheadedness. Objective: Laboratory Tests 06/13/20 06/12/20 06/12/20 Range/Units 04:50 01:45 01:45 WBC 8.0 (4.4-11.0) K/mm3 RBC 3.48 L (4.2-5.4) M/mm3 Hgb 10.0 L (12.0-15.0) g/dL Hct 30.4 L (37-47) % MCV 87.4 (81-99) fL MCH 28.7 (27.0-32.0) pg MCHC 32.9 (32-36) g/dL RDW Std Deviation 44.9 H (35.1-43.9) fl RDW Coeff of Jennifer 14.4 (11.6-14.6) % Plt Count 211 (150-450) K/mm3 MPV 10.2 (6.2-12.0) fl Immature Gran % (Auto) (0.0-0.9) % Neut % (Auto) (47-70) % Lymph % (Auto) (19-41) % [place]born % (Auto) (0-10) % Eos % (Auto) (0-5) % Baso % (Auto) (0-1) % Absolute Neuts (auto) (2.0-7.7) X10^3/uL Absolute Lymphs (auto) (0.83-4.51) X10^3/uL Nucleated RBC % (0-5) % Urine Color (Yellow) Urine Clarity (Clear) Urine pH (5.0 - 8.0) Ur Specific [place] (1.002-1.030) Urine Protein (Negative) mg/dl Urine Glucose (UA) (Normal) mg/dl Urine Ketones (Negative) mg/dl Urine Occult Blood (Negative) /ul Urine Nitrite (Negative) Urine Bilirubin (Negative) mg/dL Urine Urobilinogen (Normal) mg/dl Ur Leukocyte Esterase (Negative) /ul Urine RBC (0-5) /hpf Urine WBC (0-5) /hpf Ur Squamous Epith Cells (5-10) /hpf Urine Bacteria (None Seen) /hpf Urine Mucus (<or=2+) /hpf Vag Amniotic Fld Detect (Negative) Urine Opiates Screen (< 300 ng/mL) Urine Methadone Screen (< 300 ng/mL) Ur Barbiturates Screen (< 200 ng/mL) Ur Phencyclidine Scrn (< 25 ng/mL) Ur Amphetamines Screen (<1000 ng/mL) U Methamphetamin-MDMA (< 500 ng/mL) U Benzodiazepines Scrn (< 200 ng/mL) Urine Cocaine Screen (< 300 ng/mL) U Cannabinoids Screen (< 50 ng/mL) Ur Drug Screen Comment Chlam trachomat DNA PCR Negative (Negative) Hep Bs Antigen Non-Reactive (Nonreactive) Hepatitis C Antibody Non-Reactive (Nonreactive) HIV 1&2 Antibody Non-Reactive (Nonreactive) N.gonorrhoeae DNA (PCR) Negative (Negative) Blood Type Antibody Screen Antibody Identification 06/12/20 06/12/20 06/12/20 Range/Units 01:45 01:45 01:45 WBC (4.4-11.0) K/mm3 RBC (4.2-5.4) M/mm3 Hgb (12.0-15.0) g/dL Hct (37-47) % MCV (81-99) fL MCH (27.0-32.0) pg MCHC (32-36) g/dL RDW Std Deviation (35.1-43.9) fl RDW Coeff of Jennifer (11.6-14.6) % Plt Count (150-450) K/mm3 MPV (6.2-12.0) fl Immature Gran % (Auto) (0.0-0.9) % Neut % (Auto) (47-70) % Lymph % (Auto) (19-41) % [place] % (Auto) (0-10) % Eos % (Auto) (0-5) % Baso % (Auto) (0-1) % Absolute Neuts (auto) (2.0-7.7) X10^3/uL Absolute Lymphs (auto) (0.83-4.51) X10^3/uL Nucleated RBC % (0-5) % Urine Color Yellow (Yellow) Urine Clarity Clear (Clear) Urine pH 5.0 (5.0 - 8.0) Ur Specific [place] 1.020 (1.002-1.030) Urine Protein Negative (Negative) mg/dl Urine Glucose (UA) Normal (Normal) mg/dl Urine Ketones Negative (Negative) mg/dl Urine Occult Blood Negative (Negative) /ul Urine Nitrite Negative (Negative) Urine Bilirubin Negative (Negative) mg/dL Urine Urobilinogen Normal (Normal) mg/dl Ur Leukocyte Esterase 100 H (Negative) /ul Urine RBC 0 SEEN (0-5) /hpf Urine WBC 10-25 SEEN (0-5) /hpf Ur Squamous Epith Cells 0-5 SEEN (5-10) /hpf Urine Bacteria RARE (None Seen) /hpf Urine Mucus 0 SEEN (<or=2+) /hpf Vag Amniotic Fld Detect (Negative) Urine Opiates Screen NEGATIVE (< 300 ng/mL) Urine Methadone Screen NEGATIVE (< 300 ng/mL) Ur Barbiturates Screen NEGATIVE (< 200 ng/mL) Ur Phencyclidine Scrn NEGATIVE (< 25 ng/mL) Ur Amphetamines Screen NEGATIVE (<1000 ng/mL) U Methamphetamin-MDMA NEGATIVE (< 500 ng/mL) U Benzodiazepines Scrn NEGATIVE (< 200 ng/mL) Urine Cocaine Screen NEGATIVE (< 300 ng/mL) U Cannabinoids Screen NEGATIVE (< 50 ng/mL) Ur Drug Screen Comment Chlam trachomat DNA PCR (Negative) Hep Bs Antigen (Nonreactive) Hepatitis C Antibody (Nonreactive) HIV 1&2 Antibody (Nonreactive) N.gonorrhoeae DNA (PCR) (Negative) Blood Type O POSITIVE Antibody Screen POSITIVE H Antibody Identification UNIDENTIFIED REACTIVITY AT [facility] 06/12/20 06/12/20 Range/Units 01:45 00:20 WBC 7.1 (4.4-11.0) K/mm3 RBC 3.93 L (4.2-5.4) M/mm3 Hgb 11.3 L (12.0-15.0) g/dL Hct 33.3 L (37-47) % MCV 84.7 (81-99) fL MCH 28.8 (27.0-32.0) pg MCHC 33.9 (32-36) g/dL RDW Std Deviation 43.6 (35.1-43.9) fl RDW Coeff of Jennifer 14.2 (11.6-14.6) % Plt Count 250 (150-450) K/mm3 MPV 10.1 (6.2-12.0) fl Immature Gran % (Auto) 1.300 H (0.0-0.9) % Neut % (Auto) 68.3 (47-70) % Lymph % (Auto) 24.4 (19-41) % [place] % (Auto) 4.7 (0-10) % Eos % (Auto) 0.9 (0-5) % Baso % (Auto) 0.4 (0-1) % Absolute Neuts (auto) 4.8 (2.0-7.7) X10^3/uL Absolute Lymphs (auto) 1.72 (0.83-4.51) X10^3/uL Nucleated RBC % 0 (0-5) % Urine Color (Yellow) Urine Clarity (Clear) Urine pH (5.0 - 8.0) Ur Specific [place] (1.002-1.030) Urine Protein (Negative) mg/dl Urine Glucose (UA) (Normal) mg/dl Urine Ketones (Negative) mg/dl Urine Occult Blood (Negative) /ul Urine Nitrite (Negative) Urine Bilirubin (Negative) mg/dL Urine Urobilinogen (Normal) mg/dl Ur Leukocyte Esterase (Negative) /ul Urine RBC (0-5) /hpf Urine WBC (0-5) /hpf Ur Squamous Epith Cells (5-10) /hpf Urine Bacteria (None Seen) /hpf Urine Mucus (<or=2+) /hpf Vag Amniotic Fld Detect POSITIVE H (Negative) Urine Opiates Screen (< 300 ng/mL) Urine Methadone Screen (< 300 ng/mL) Ur Barbiturates Screen (< 200 ng/mL) Ur Phencyclidine Scrn (< 25 ng/mL) Ur Amphetamines Screen (<1000 ng/mL) U Methamphetamin-MDMA (< 500 ng/mL) U Benzodiazepines Scrn (< 200 ng/mL) Urine Cocaine Screen (< 300 ng/mL) U Cannabinoids Screen (< 50 ng/mL) Ur Drug Screen Comment Chlam trachomat DNA PCR (Negative) Hep Bs Antigen (Nonreactive) Hepatitis C Antibody (Nonreactive) HIV 1&2 Antibody (Nonreactive) N.gonorrhoeae DNA (PCR) (Negative) Blood Type Antibody Screen Antibody Identification - Physical Exam Vitals/I&O's: Vital Signs Temp Pulse Resp BP Pulse Ox 97.7 F L 65 16 99/55 L 99 06/13/20 07:45 06/13/20 07:45 06/13/20 07:45 06/13/20 07:45 06/13/20 07:45 Oxygen Delivery Method Room Air Weight: 310 lb 12.8 oz Body Mass Index (BMI) 50.1 Intake and Output for Last 24 Hours 06/11/20 06/12/20 06/13/20 23:59 23:59 23:59 Intake Total 5169.29 / 5169.29 2173.33 / 2173.33 Output Total 1400 / 1400 400 / 400 Balance 3769.29 / 3769.29 1773.33 / 1773.33 General: Alert, Oriented x3, Cooperative, No apparent distress, Well developed, Well nourished HEENT: Atraumatic, PERRLA, EOMI, Normocephalic Neck: Supple, No JVD Lungs: Normal air movement Cardiovascular: Regular rate Abdomen: Soft, Non Tender, Non-Distended Extremities: - - incision c/d/i with dressing in place, fundus firm Neurological: Cranial nerves II-XII grossly intact, Neuro grossly intact Psych/Mental Status: Normal Affect, Appropriate Microbiology Past 72 Hours 06/12/20 11:10 Mucosa - Nose SARS-CoV-2 Antigen (Rapid) - Final Laboratory Results 06/13/20 04:50: WBC 8.0, RBC 3.48 L, Hgb 10.0 L, Hct 30.4 L, MCV 87.4, MCH 28.7, MCHC 32.9, RDW Std Deviation 44.9 H, RDW Coeff of Jennifer 14.4, Plt Count 211, MPV 10.2 Current Medications Acetaminophen (Acetaminophen 500 Mg Tablet) 1,000 mg PO Q6H [facility] Last Admin: 06/13/20 06:49 Dose: 1,000 mg Documented by: Bisacodyl (Bisacodyl 10 Mg Suppository) 10 mg RECTAL UD PRN PRN Reason: If no BM Enoxaparin Sodium (Enoxaparin 40 Mg/0.4 Ml Syringe) 40 mg SC BID [facility] [place] Last Admin: 06/13/20 09:29 Dose: 40 mg Documented by: Hydrocortisone (Hydrocortisone 2.5% Crm) 1 applic TOPICAL TID PRN PRN; Protocol PRN Reason: Discomfort Lactated Ringer's () 1,000 mls @ 100 mls/hr IV .Q10H [facility] [place] Last Infusion: 06/13/20 08:00 Dose: 0 mls/hr Documented by: Ibuprofen (Ibuprofen 600 Mg Tablet) 600 mg PO Q6H [facility] [place] Ketorolac Tromethamine (Ketorolac 30 Mg/Ml Syringe) 30 mg IV Q6H [facility] [place] Stop: 06/13/20 21:31 Last Admin: 06/13/20 09:29 Dose: 30 mg Documented by: Methylergonovine Maleate (Methylergonovine 0.2 Mg/Ml Ampul) 0.2 mg IM X1 PRN PRN Reason: Uterine Atony Ondansetron HCl (Ondansetron 4 Mg/2 Ml Vial) 4 mg IV Q4H PRN PRN PRN Reason: Nausea Oxycodone HCl (Oxycodone 5 Mg Tablet) 5 - 10 mg PO Q4H PRN PRN PRN Reason: Pain Score 4-10 Prochlorperazine Edisylate (Prochlorperazine 10 Mg/2 Ml Vial) 10 mg IV Q6H PRN PRN PRN Reason: NAUSEA Senna/Docusate Sodium (Senna/Docusate Sodium 1 Tablet) 0 tablet PO DAILY [facility] [place] Last Admin: 06/13/20 09:29 Dose: 1 tablet Documented by: Simethicone (Simethicone 80 Mg Tablet) 80 mg PO PCHS PRN PRN Reason: Indigestion/stomach pain Sodium Chloride (0.9% Saline Lock 10 Ml Syringe) 5 - 15 ml IV UD PRN PRN Reason: SALINE FLUSH Medical Necessity - Tobacco Use Smoking Status: Never smoker Assessment/Plan All Active Problems (Last Reviewed 06/11/20 @ 08:55 by Julissa Hernandez) Full-term premature rupture of membranes (Acute) Generalized pruritus (Acute) 37 weeks gestation of (Acute) negative IgG antibody (Acute) Positive GBS test (Acute) (Acute) History of delivery (Acute) Supervision of high risk in third trimester (Acute) Obesity affecting in third trimester (Acute) Breech presentation (Resolved) Decreased movement affecting management of in third trimester (Resolved) s/p LTCS PPD # 1 1. routine post care 2. breast feeding- support given 3. rh positive 4. rubella immune
--- NOTE | 2020-06-13 19:55 | NURSING ---
Firm tissue noted in lower abdomen. Patient reports that this developed with her last and never went away. Patient reports that it has not changed in size or texture. Skin pink and dry.
[2020-06-13] MEDS: 0.9% Saline Lock 10 ML Syringe IV (21:49)
[2020-06-14] MEDS: Acetaminophen 500 MG Tablet 1000 MG PO ×2 (01:39→07:44)
[2020-06-14 02:17] VITALS: BP 100/40; PULSE 74; RESP 18; TEMP 36.6; O2SAT 98
[2020-06-14] MEDS: Ibuprofen 600 MG Tablet PO ×2 (04:16→10:22)
[2020-06-14 08:26] VITALS: BP 106/46; PULSE 94; RESP 14; TEMP 36.9; O2SAT 96
[2020-06-14] MEDS: Enoxaparin 40 MG/0.4 ML Syringe SC (10:22)
[2020-06-14] MEDS: Senna/Docusate Sodium 1 Tablet PO (10:22)
[2020-06-18 03:03] LABS: Rapid Plasmin Reagin (RPR) NONREACTIVE (NONREACTIVE)
== END 2020-06-14 12:20 | disposition home or self-care (01) | DRG 788 ==
LOC: WPOUT 00:45 → WP 00:45
PROVIDERS: Obstetrics & Gynecology; Admitting Provider Obstetrics & Gynecology; Visit Provider Obstetrics & Gynecology
DX: O77.9 Labor and delivery complicated by fetal stress, unspecified (principal); Z37.0 Single live birth; O34.219 Maternal care for unspecified type scar from previous cesarean delivery; O99.824 Streptococcus B carrier state complicating childbirth; O99.214 Obesity complicating childbirth; O99.02 Anemia complicating childbirth; Z3A.39 39 weeks gestation of pregnancy; E66.9 Obesity, unspecified; D64.9 Anemia, unspecified; O69.1XX0 Labor and delivery complicated by cord around neck, with compression, not applicable or unspecified
CPT/HCPCS: 59025; 59050; 80307; 81001; 84112; 85025; 85027; 86592; 86703; 86803; 86850; 86870; 86900; 86901; 87340; 87426; 87491; 87591; 99218; J7120; A4216; G0378; J2405

== ENCOUNTER → 2020-07-30 | Outpatient (CLI) | payer SELFPAY ==
[2020-07-30 11:35] VITALS: BMI 51.3
[2020-08-04 20:33] LABS: HPV APTIMA, High Risk Negative (Negative)
== END | disposition home or self-care (01) ==
LOC: LABSPEC 16:27
PROVIDERS: Visit Provider Obstetrics & Gynecology
DX: Z12.4 Encounter for screening for malignant neoplasm of cervix (principal)
CPT/HCPCS: 87624; 88175; G0145

== ENCOUNTER → 2022-09-12 | Outpatient (CLI) | payer SELFPAY, OTHER ==
[2022-09-12 16:25] LABS: Absolute Lymphocyte Count 1.66 X10^3/uL (0.83-4.51); Absolute Neutrophil Count 4.1 X10^3/uL (2.0-7.7); Basophil# 0.02 X10^3/uL; Basophil% 0.3 % (0-1); Eosinophil# 0.06 X10^3/uL; Hematocrit 36.3 % (37-47); Hemoglobin 11.9 g/dL (12.0-15.0); Lymphocyte # 1.66 X10^3/ul (0.83-4.51); Lymphocyte % 27.1 % (19-41); Mean Corp Hgb Conc 32.8 g/dL (32-36); Mean Corpuscular Hgb 28.6 pg (27.0-32.0); Mean Corpuscular Volume 87.3 fL (81-99); Mean Platelet Vol. 9.9 fl (6.2-12.0); Monocyte# 0.27 X10^3/uL; Monocyte% 4.4 % (0-10); NRBC Flagged by Analyzer 0 % (0-5); Neutrophil # 4.05 X10^3/uL (2.7-7.7); Neutrophil % 66.1 % (47-70); Platelet Count 227 K/mm3 (150-450); RBC Distribution Width CV 14.5 % (11.6-14.6); RBC Distribution Width SD 45.7 fl (35.1-43.9); Red Blood Count 4.16 M/mm3 (4.2-5.4); White Blood Count 6.1 K/mm3 (4.4-11.0)
--- NOTE | 2022-09-12 16:30 | US_ITS ---
STUDY: Ultrasound OB limited 1 or more fetus REASON FOR EXAM: Female, 42 years old dating LMP: May 14, 2022 correlating with 17 weeks 2 days estimated delivery date February 18, 2023 TECHNIQUE: Transabdominal and endovaginal pelvic ultrasound with grayscale color flow and M-mode Doppler FINDINGS: Single live intrauterine , transverse maternal right lie, with normal heart rate 152 bpm. Cervix long and closed at 3.3 cm Deepest vertical pocket 6.4 cm Placenta posterior, grade one without evidence of abruption or previa. Biparietal diameter 3.6 cm 17 weeks 0 days Head circumference 15.1 cm 18 weeks 1 day Abdominal circumference 11.7 cm 17 weeks 3 days Femur length 2.2 cm 16 weeks 4 days Composite ultrasound age 17 weeks 4 days correlating with February 16, 2023 delivery date Estimated weight: 178 grams, +/- 27 grams, 28 percentile. US/OB Limited With Biometrics IMPRESSION: Single live intrauterine with normal heart rate. Posterior low-lying placenta. Recommend attention to placental location on 20 week anatomy scan dating by biometry is concordant with provided dating Cervix is long and closed with normal amniotic fluid. Electronically Signed: Tony Wesley MD at 3:45 EDT ,
[2022-09-12 16:54] LABS: Hemoglobin A1c 4.7 % (3.8-5.6)
[2022-09-12 18:09] LABS: HIV - WCH Non-Reactive (Nonreactive); Hepatitis B Surface Antigen Non-Reactive (Nonreactive); Hepatitis C Antibody Non-Reactive (Nonreactive); Rubella IgG Reactive (Nonreactive); Syphilis Antibodies Non-reactive
[2022-09-14 22:07] LABS: Chlamydia By Nucleic Acid AMP Negative (Negative); Gonococcus By Nucleic Acid AMP Negative (Negative)
== END | disposition home or self-care (01) ==
PROVIDERS: Referring Provider Obstetrics & Gynecology; Visit Provider Obstetrics & Gynecology
DX: O09.90 Supervision of high risk pregnancy, unspecified, unspecified trimester (principal); Z3A.00 Weeks of gestation of pregnancy not specified
CPT/HCPCS: 36415; 76816; 83036; 85025; 86703; 86762; 86780; 86803; 86850; 86870; 86900; 86901; 87086; 87088; 87340; 87491; 87591

== ENCOUNTER 2022-12-03 10:30 | Outpatient (CLI) | payer OTHER, SELFPAY ==
[2022-12-03 10:41] VITALS: PULSE 80; TEMP 37.1; O2SAT 96
[2022-12-03 10:45] VITALS: BP 121/59; PULSE 81; PULSE 82; O2SAT 94
[2022-12-03 10:50] VITALS: BMI 52.2
--- NOTE | 2022-12-03 11:13 | OB.TRI.NOTE ---
HPI - General General Date of Admission: 12/03/22 Date of Service: 12/03/22 HPI Narrative GIORGI HURLEY, is a 42 @ 29 weeks 0days who presents to L&D with complaint of vaginal bleeding that started (3 days ago) as a gush of blood that ran down her leg in the shower. She thought that she cut something or bumped something because immediately it slowed to a light pink discharge. The light pink continued until last night and she called the continuous improvement intern number this am and was directed to L&D. She has a significant history of recurrent miscarriages and 2 prior sections. Her anatomy scan showed a low lying placenta and she has a follow up on 12/15/22 to look at the position. Maternal Data Information MERI Calculator Estimated Delivery Date Method Current WG Current Estimate 02/18/23 LMP (Certain) 29w 0d PFSH PFSH Medical History Anemia affecting Home Medications bee pollen 550 mg capsule mg PO 09/12/22 [History Last Taken Unknown] docosahexaenoic acid 200 mg capsule ( DHA) mg PO 09/12/22 [History Last Taken Unknown] multivitamin 1 tab PO DAILY 09/12/22 [History Last Taken Unknown] Allergy/AdvReac Type Severity Reaction Status Date / Time No Known Allergies Allergy Verified 12/03/22 10:50 Family History Mother Breast cancer Surgical History delivery delivered History of delivery Social History Smoking Status: Never smoker alcohol intake: never substance use type: does not use caffeine: Yes Type: tea what type of physical activity do you participate in: none seatbelt use: always do you feel safe at home: Yes additional social history: Josse History 17 Elective abortions 0 Hx Para 6 Spontaneous abortions 12 Hx # Term Pregnancies 6 Ectopic pregnancies 0 Hx # Pregnancies 0 Multiple births 0 # of living children 6 Past Pregnancies Del. Date Name GA/Weeks Outcome Route Bth Weight Infant Gen Labor Lgth Anesthesia Del Locatn Provider FOB Unknown 2018 Dalila 42 live - full term Female [facility] SM SM Unknown 2005 still still Unknown 2006 Amadou 42 live - full term Female [place] Unknown 2006 Janice 37 live - full term [place] Unknown 2010 Krystina 40 live - full term Female [facility] Unknown 2012 Alize 42 live - full term Female [employer] [facility] Valery Scott 06/12/20 Pollo 39 live - full term Male epidural [facility] GP Delivery Date: 06/12/20 Last Updated by: Radha Dennyn Admitted in active labor for TOLAC; R C/S done due to Cat 2 tracing. Visit Details Expected Delivery Route/Plan RLTCS and BS with SM at 39 unless IAL TOLAC patient counseled regarding risks/benefits of trial of labor versus repeat . ACOG/uptodate education given to patient. [] % likelihood of success per calculator TOLAC consent form signed: [] Plans Covid status:declined Flu vaccine: declined Tdap vaccine: declined Rhogam: na LARC form signed: [] movement and labor precautions reviewed. Problem list reviewed and updated with the most current plan of care details and appropriate orders placed. Relevant counseling for the gestational age provided. Continue routine care and follow up unless otherwise noted in visit notes/problem list details OB Flowsheet Initial Weight: Not Recorded Date <del>?</del> EGA Weight BP Urine Prot <del>?</del> Glucose FHR FuHt Pres Dilation <del>?</del> Effaced St Visit Note 09/12/22 <del>?</del> 17w 2d 285 lb 2 oz 115/73 <del>?</del> 150 <del>?</del> SM- no vb lof US today 10/14/22 <del>?</del> 21w 6d 292 lb 126/75 Negative <del>?</del> Negative 138 <del>?</del> LC- no vb/cramping. will schedule anatomy scan. low lying placenta, pelvic rest. compression socks for LE edema. 11/24/22 <del>?</del> 27w 5d 301 lb 100/50 Negative <del>?</del> Negative 145 34 <del>?</del> SM- co vaginal itching and discharge. she co odor with it, no regular ctx. SM- co vaginal itching and discharge. she co odor with it, no regular ctx. bv swab ROS Constitutional Constitutional: Reports systems reviewed and no addt'l complaints, except as documented Gastrointestinal Gastrointestinal: Denies bloating, constipation, cramping, diarrhea, nausea or vomiting Genitourinary Genitourinary: Reports other Details: Denies vaginal odor, vaginal bleeding, or vaginal discharge ; Denies difficulty urinating or flank pain Physical Exam Const alert, oriented x3 and no apparent distress HEENT normocephalic Resp normal respiratory effort and normal air movement GI soft to palpation and non-tender no CVA tenderness External Female Exam: normal appearance of the urethra OB / External & Speculum: vulvular erythema, vaginal discharge and other copious amount of vaginal yeast present ; Negative for vaginal laceration or vaginal bleeding Manual OB Exam: not dilated nor effaced Uterus Palpation: Negative for uterus tender Amniotic Fluid: no amniotic fluid noted and other Extremity normal to inspection General Extremity: edema bilateral (trace ) NST FHR Rate Baby A Baseline: 130 Variability:: Moderate Accelerations:: 15 x 15 Decelerations:: None NST Reactive:: Yes FHR Category:: Category I Uterine Activity:: no contractions Assessment & Plan (1) Obesity affecting : COMMENT: encourage healhty weight gain (2) Red blood cell antibody positive: COMMENT: unsure antibody reactivity, has had in past positive, draw further titers and clarification at next visit (3) History of recurrent miscarriages: COMMENT: APL panel neg (4) History of stillbirth in currently patient: COMMENT: APL panel neg, weekly nsts after 32 for ama and stillbirth (5) Previous delivery affecting : COMMENT: x 2 breech and NRFHTs, plan TOLAC. 4 successful VBACs in between, plan RLTCS at 39 with BS unless active labor prior RLTCSBS scheduled for 02/13 with SM @ 7:30 (6) Supervision of high-risk : COMMENT: PRR MERI 02/18/23 PC amadou gavin, janice, krystina, alize, pollo josse (7) AMA (advanced maternal age) multigravida 35+: COMMENT: genetic counseling provided, growth q 4 weeks. weekly nsts after 32 (8) : QUALIFIERS: Weeks of gestation: 27 weeks Qualified Code(s): Z3A.27 - 27 weeks gestation of COMMENT: PRR. declined genetic and carrier screening late to care- obtain CBC/ serology around 32 weeks (9) Vaginal bleeding during , antepartum: COMMENT: presented to L&D on 12/03/22 for bleeding that was noted on 12/01/22. no bleeding on exam, copious amount of vaginal yeast noted. PLAN: bedside ultrasound shows no signs of placental abruption. There is not a vaginal probe present, however what can be visualized is that the placenta appears 2.26 cm from the cervix. pt understands that this is not completely accurate and to keep her scheduled formal scan on 12/15/22. -will treat the yeast infection with diflucan as she has never used vaginal cream with applicator before and I worry that she will cause more harm this way. -return if bleeding starts again. Charges/Coding Multi Select Codes Visit Charges Office Visit/Consults: 39811 OV L3 Est Urinary/Genital Urinary/Genital CPT Codes: 92606-17 non-stress test Interp
[2022-12-03] MEDS: Fluconazole 100 MG Tablet PO (12:04)
== END 2022-12-03 12:05 | disposition home or self-care (01) ==
LOC: WPOUT 10:32 → WP 10:33
PROVIDERS: Referring Provider Obstetrics & Gynecology; Visit Provider Obstetrics & Gynecology
DX: O46.92 Antepartum hemorrhage, unspecified, second trimester (principal); O99.212 Obesity complicating pregnancy, second trimester; O99.891 Other specified diseases and conditions complicating pregnancy; R71.8 Other abnormality of red blood cells; N96 Recurrent pregnancy loss; O09.522 Supervision of elderly multigravida, second trimester; Z3A.27 27 weeks gestation of pregnancy
CPT/HCPCS: 59050; 99221; G0378

== ENCOUNTER → 2022-12-15 | Outpatient (CLI) | payer SELFPAY, OTHER ==
--- NOTE | 2022-12-15 14:15 | US_ITS ---
STUDY: SECOND AND THIRD TRIMESTER OBSTETRICAL ULTRASOUND REASON FOR EXAM: Female, 42 years old anatomy LMP: May 14, 2022. TECHNIQUE: Transabdominal and Transvaginal TECHNICAL QUALITY: Limited. Examination limited due to obesity. PRIOR ULTRASOUND: Comparison is made with prior study dated September 12, 2022. FINDINGS: There is a single intrauterine fetus. The fetus is in a cephalic presentation. There is demonstrated cardiac activity with a heart rate of 134 bpm. There is a normal amniotic fluid volume. The largest amniotic fluid pocket measures 4.1 cm x 2.1 cm. The amniotic fluid index (LEATHA) is 13.35 cm. The placenta is posterior in location and is not low lying. There are Grade 0 placental changes. The cervix measures 4 cm in length. The adnexal regions are not visualized. BIOMETRY: BPD: 7.71 cm: 30 weeks, 6 days HC: 29.15 cm: 32 weeks, 1 days AC: 25.79 cm: 30 weeks, 0 days FL: 5.8 cm: 30 weeks, 2 days CI: 76% FL/BPD: 75.2% FL/HC: FL/AC: 22.5% HC/AC: 1.13 age by current US: 31 weeks, 0 days. MERI by current US: February 16, 2023. Estimated weight: 1547 grams, +/- 232 grams, 25.4 %. age by prior US: 31 weeks, 0 days. MERI by prior US: February 16, 2023. Age by LMP: 30 weeks, 5 days. MERI by LMP: The liver 2022. ANATOMY: Gender: Female Cranium: Normal lateral ventricles. Normal choroid plexus. Normal cerebellum. Normal cisterna magna. Normal face, nose and lips. Chest: Limited visualization due to patient''s body habitus. Abdomen/Pelvis: Normal diaphragm. Limited visualization. Limited visualization. Normal cord insertion. Normal 3 vessel cord. Normal kidneys. Normal bladder. Spine: Limited visualization. Normal thoracic spine. Normal lumbar spine. Normal sacrum. Extremities: Normal bilateral upper extremities. Normal bilateral lower extremities. IMPRESSION: Single live intrauterine gestation with a mean gestational age of 31 weeks. The measurements obtained today within the normal expected range. Limited examination of the anatomy as described above due to patient''s body habitus. Electronically Signed: Sebastián Edward MD at 12:16 EDT , STUDY: FIRST TRIMESTER OBSTETRICAL ULTRASOUND REASON FOR EXAM: Female, 42 years old . Cervical length. LMP: May 14, 2022. TECHNIQUE: Transvaginal TECHNICAL QUALITY: Adequate. PRIOR ULTRASOUND: None. FINDINGS: Cervical length measures 4 cm. US/OB Anatomy Scan IMPRESSION: Cervical length measures 4 cm. Electronically Signed: Sebastián Edward MD at 12:16 EDT ,
== END | disposition home or self-care (01) ==
LOC: US 14:13
PROVIDERS: Referring Provider Obstetrics & Gynecology; Visit Provider Obstetrics & Gynecology
DX: O44.40 Low lying placenta NOS or without hemorrhage, unspecified trimester (principal); Z3A.00 Weeks of gestation of pregnancy not specified
CPT/HCPCS: 76805; 76817

== ENCOUNTER → 2022-12-29 | Outpatient (CLI) | payer SELFPAY, OTHER ==
[2022-12-29 11:03] LABS: Absolute Lymphocyte Count 1.44 X10^3/uL (0.83-4.51); Absolute Neutrophil Count 4.1 X10^3/uL (2.0-7.7); Basophil# 0.02 X10^3/uL; Basophil% 0.3 % (0-1); Eosinophil# 0.06 X10^3/uL; Hematocrit 31.6 % (37-47); Hemoglobin 10.6 g/dL (12.0-15.0); Lymphocyte # 1.44 X10^3/ul (0.83-4.51); Lymphocyte % 24.2 % (19-41); Mean Corp Hgb Conc 33.5 g/dL (32-36); Mean Corpuscular Hgb 29.3 pg (27.0-32.0); Mean Corpuscular Volume 87.3 fL (81-99); Mean Platelet Vol. 9.7 fl (6.2-12.0); Monocyte# 0.19 X10^3/uL; Monocyte% 3.2 % (0-10); NRBC Flagged by Analyzer 0 % (0-5); Neutrophil # 4.12 X10^3/uL (2.7-7.7); Neutrophil % 69.4 % (47-70); Platelet Count 227 K/mm3 (150-450); RBC Distribution Width CV 14.6 % (11.6-14.6); RBC Distribution Width SD 45.9 fl (35.1-43.9); Red Blood Count 3.62 M/mm3 (4.2-5.4); White Blood Count 5.9 K/mm3 (4.4-11.0)
[2022-12-29 11:32] LABS: Glucose Challenge Gest 1H 50g 159 mg/dL (70-140)
[2022-12-29 21:53] LABS: HIV - WCH Non-Reactive (Nonreactive); Syphilis Antibodies Non-reactive
== END | disposition home or self-care (01) ==
PROVIDERS: Registered Nurse; Referring Provider Obstetrics & Gynecology; Visit Provider Obstetrics & Gynecology
DX: O09.90 Supervision of high risk pregnancy, unspecified, unspecified trimester (principal); Z3A.00 Weeks of gestation of pregnancy not specified; Z13.1 Encounter for screening for diabetes mellitus
CPT/HCPCS: 36415; 82950; 85025; 86703; 86780; 86850; 86870; 86900; 86901

== ENCOUNTER 2023-01-07 14:45 | Outpatient (CLI) | payer OTHER, SELFPAY ==
[2023-01-07 14:57] VITALS: BMI 53.7
[2023-01-07 15:03] VITALS: BP 130/77; PULSE 100
--- NOTE | 2023-01-07 15:25 | HP.PCM.OB_ITS ---
HPI - General HPI Narrative TAMIKO HURLEY, is a 42 y/o @ 34 weeks 0 days, by LMP and 31 week ultrasound, who presents to L&D with painful contractions. Her called ahead to let us know to be ready for delivery. She is talking through contractions and stops talking when she feels the pain. Her face turns red and she appears in pain. She rates the pain during a contraction a 4 on a scale from1-10. She describes the pain as a burning sensation that runs from her incision to her belly button. Tamiko has had 4 's and 2 sections. She states that over the last 2 days she has been experiencing decreased movement and headaches. The headaches run from the back of her neck up to her forehead. She denies visual changes or RUQ pain. Maternal Data Information MERI Calculator Estimated Delivery Date Method Current WG Current Estimate 02/18/23 LMP (Certain) 34w 0d PFSH PFSH Medical History Anemia affecting Home Medications bee pollen 550 mg capsule mg PO 09/12/22 [History Last Taken Unknown] docosahexaenoic acid 200 mg capsule ( DHA) mg PO 09/12/22 [History Last Taken Unknown] multivitamin 1 tab PO DAILY 09/12/22 [History Last Taken Unknown] Allergy/AdvReac Type Severity Reaction Status Date / Time No Known Allergies Allergy Verified 01/07/23 14:59 Family History Mother Breast cancer Surgical History delivery delivered History of delivery Social History Smoking Status: Never smoker alcohol intake: never substance use type: does not use caffeine: Yes Type: tea what type of physical activity do you participate in: none seatbelt use: always do you feel safe at home: Yes additional social history: Josse History 17 Elective abortions 0 Hx Para 6 Spontaneous abortions 12 Hx # Term Pregnancies 6 Ectopic pregnancies 0 Hx # Pregnancies 0 Multiple births 0 # of living children 6 Past Pregnancies Del. Date Name GA/Weeks Outcome Route Bth Weight Infant Gen Labor Lgth Anesthesia Del Locatn Provider FOB Unknown 2018 Dalila 42 live - full term Female [facility] SM SM Unknown 2005 still still Unknown 2006 Amadou 42 live - full term Female home [place] Unknown 2006 Janice 37 live - full term home [place] Unknown 2010 Coby 40 live - full term Female [facility] Unknown 2012 Alize 42 live - full term Female [employer] [facility] bir[facility] Valery Scott 06/12/20 Pollo 39 live - full term Male ep idural [facility] GP Delivery Date: 06/12/20 Last Updated by: Radha Dennyn Admitted in active labor for TOLAC; R C/S done due to Cat 2 tracing. Visit Details Expected Delivery Route/Plan RLTCS and BS with SM on 02/13 at 39 unless IAL TOLAC patient counseled regarding risks/benefits of trial of labor versus repeat . ACOG/uptodate education given to patient. [] % likelihood of success per calculator TOLAC consent form signed: [] Plans Covid status:declined Flu vaccine: declined Tdap vaccine: declined Rhogam: na LARC form signed: [] movement and labor precautions reviewed. Problem list reviewed and updated with the most current plan of care details and appropriate orders placed. Relevant counseling for the gestational age provided. Continue routine care and follow up unless otherwise noted in visit notes/problem list details OB Flowsheet Initial Weight: Not Recorded Date -?-?-?-?-?-?-?-?-?-?-?-?- EGA Weight BP Urine Prot -?-?-?-?-?-?-?-?-?-?-?-?- Glucose FHR FuHt Pres Dilation -?-?-?-?-?-?-?-?-?-?-?-?- Effaced St Visit Note 09/12/22 -?-?-?-?-?-?-?-?-?-?-?-?- 17w 2d 285 lb 2 oz 115/73 -?-?-?-?-?-?-?-?-?-?-?-?- 150 -?-?-?-?-?-?-?-?-?-?-?-?- SM- no vb lof US today 10/14/22 -?-?-?-?-?-?-?-?-?-?-?-?- 21w 6d 292 lb 126/75 Negative -?-?-?-?-?-?-?-?-?-?-?-?- Negative 138 -?-?-?-?-?-?-?-?-?-?-?-?- LC- no vb/crampi ng. will schedule anatomy scan. low lying placenta, pelvic rest. compression socks for LE edema. 11/24/22 -?-?-?-?-?-?-?-?-?-?-?-?- 27w 5d 301 lb 100/50 Negative -?-?-?-?-?-?-?-?-?-?-?-?- Negative 145 34 -?-?-?-?-?-?-?-?-?-?-?-?- SM- co vaginal i tching and discharge. she co odor with it, no regular ctx. SM- co vaginal itching and d ischarge. she co odor with it, no regular ctx. bv swab 12/15/22 -?-?-?-?-?-?-?-?-?-?-?-?- 30w 5d 306 lb 8 oz 107/69 Nega tive -?-?-?-?-?-?-?-?-?-?-?-?- Negative 140 35 -?-?-?-?-?-?-?-?-?-?-?-?- SM- no vb lof go od fm n oregular ctx repeat US today, missed draw time for 12/29/22 -?-?-?-?-?-?-?-?-?-?-?-?- 32w 5d 312 lb 2 oz 122/80 Nega tive -?-?-?-?-?-?-?-?-?-?-?-?- Negative 140 36 -?-?-?--?-?-?-?-?-?-?-?-?- JV- nst reactive . last growth on 12/20 was normal. plan for weekly growths due to morbid obesity and weekly nsts. JV- nst reactive. last growt h on 12/20 was normal. plan for weekly growths due to morbid obesity and weekly nsts. gct was pending at time of visit but returned abnormal after left pt does not have a phone. will need to inform them next visit. 01/04/23 -?-?-?-?-?-?-?-?-?-?-?-?- 33w 4d 313 lb 6 oz 120/71 Nega tive -?-?-?-?-?-?-?-?-?-?-?-?- Negative 145 -?-?-?-?-?-?-?-?-?-?-?-?- JV- reactive nst . 3 hr gtt was ordered. pt will do this when returns next week. has transportation issues. plan to rpt growth scan January. NST FHR Rate Baby A Baseline: 140 Variability:: Moderate Accelerations:: 10 x 10 Decelerations:: None NST Reactive:: Yes FHR Category:: Category I Uterine Activity:: no contractions on monitor ROS Constitutional Constitutional: Reports headache(s) and poor appetite Eyes Eyes: Denies change in vision or double vision Cardiovascular Cardiovascular: Reports diaphoresis, dizziness, fatigue and nausea; Denies chest pain, dyspnea, rapid heart rate or vomiting Respiratory/Chest Respiratory/Chest: Denies chest tightness or cough Gastrointestinal Gastrointestinal: Reports abdominal pain and heartburn; Denies constipation, diarrhea or vomiting Genitourinary Genitourinary: Reports contractions Details: present and movement Details: decreased; Denies difficulty urinating or hematuria Musculoskeletal Musculoskeletal: Reports back pain Vital Signs Vital Signs Vital Signs: 01/07/23 15:03 01/07/23 15:03 Pulse Rate 100 Blood Pressure 130/77 H BP Systolic 130 BP Diastolic 77 Weight Weight: 313 lb Body Mass Index (BMI) 53.7 Physical Exam Const alert, oriented x3 and no apparent distress HEENT Head and Scalp: normal to inspection Eyes General Eye: normal appearance of both eyes Resp normal respiratory effort Effort and Inspection: able to speak in complete sentences GI Palpation: soft and tender other (moderate tenderness of lower abdomen over abdominal scar and slightly above it as well) no CVA tenderness and appearance of the vagina normal External Female Exam: normal appearance of the urethra Speculum Exam - Cervix: other fingertip dilation, no effacement, mid position, and firm Amniotic Fluid: other normal LEATHA on bedside us. vtx presentation. Skin no rashes or lesions noted Labs Labs Labs: Blood Type O POSITIVE Antibody Screen POSITIVE Hct 31.8 % (37-47) L Hgb 10.3 g/dL (12.0-15.0) L Obstetrics US Syphilis Total Ab Non-reactive Rubella IgG Antibody Reactive (Nonreactive) Hep Bs Antigen Non-Reactive (Nonreactive) Chlamydia DNA (MARLEN) Negative (Negative) Neisseria gonorrhoeae DNA (MARLEN) Negative (Negative) HIV 1&2 Antibody Non-Reactive (Nonreactive) Glucose 1 Hr 50 gm 159 mg/dL (70-140) H Rhogam given: No Miscellaneous Test Assessment & Plan (1) Abnormal glucose affecting : COMMENT: failed 1 hour. needs 3 hour (2) Vaginal bleeding during , antepartum: COMMENT: presented to L&D on 12/03/22 for bleeding that was noted on 12/01/22. no bleeding on exam, copious amount of vaginal yeast noted. (3) Obesity affecting : COMMENT: encourage healhty weight gain (4) Red blood cell antibody positive: COMMENT: unsure antibody reactivity, has had in past positive, draw furthe r titers and clarification at next visit (5) History of recurrent miscarriages: COMMENT: APL panel neg (6) History of stillbirth in currently patient: COMMENT: APL panel neg, weekly nsts after 32 for ama and stillbirth (7) Previous delivery affecting : COMMENT: x 2 breech and NRFHTs, plan TOLAC. 4 successful VBACs in between, plan RLTCS at 39 with BS unless active labor prior RLTCSBS scheduled for 02/13 with SM @ 7:30 (8) Supervision of high-risk : COMMENT: PRR MERI 02/18/23 amadou Kline joas, katie, amelia, pollo posadas (9) AMA (advanced maternal age) multigravida 35+: COMMENT: genetic counseling provided, growth q 4 weeks. weekly nsts after 32 (10) : QUALIFIERS: Weeks of gestation: 33 weeks Qualified Code(s): Z3A.33 - 33 weeks gestation of COMMENT: PRR. declined genetic and carrier screening late to care- obtain CBC/ serology around 32 weeks (11) Abdominal pain affecting : PLAN: -sending off UA/C -start IV placement now -pt,ptt, inr, fibrinogen, cbc, cmp and prot:Cr ratio ordered (all normal) DDX: UTI, labor, false labor(mack wilson), or uterine rupture. Will add to differential based on labs when returned. -celestone 12.5 mg now. follow up:
[2023-01-07 16:11] LABS: Mucous, Urine 0 SEEN /hpf (<or=2+); Red Blood Cells-Urine 0 SEEN /hpf (0-5); White Blood Cells 0 SEEN /hpf (0-5)
[2023-01-07 16:12] LABS: Hematocrit 31.8 % (37-47); Hemoglobin 10.3 g/dL (12.0-15.0); Mean Corp Hgb Conc 32.4 g/dL (32-36); Mean Corpuscular Hgb 28.6 pg (27.0-32.0); Mean Corpuscular Volume 88.3 fL (81-99); Mean Platelet Vol. 10.2 fl (6.2-12.0); Platelet Count 245 K/mm3 (150-450); RBC Distribution Width CV 14.5 % (11.6-14.6); RBC Distribution Width SD 46.5 fl (35.1-43.9); White Blood Count 7.1 K/mm3 (4.4-11.0)
[2023-01-07 16:20] LABS: Color, Urine Yellow (Yellow); Glucose, Dipstick Normal (Normal); Ketone-Dipstick 15 mg/dl (Negative); Leukocyte Esterase-Dipstick Negative /ul (Negative); Nitrite-Dipstick Negative (Negative); Occult Blood-Urine Negative /ul (Negative); Protein-Dipstick Negative (Negative); Urine Bilirubin Dipstick Negative (Negative); Urine Clarity Clear (Clear); Urine Urobilinogen Normal (Normal)
[2023-01-07 16:28] LABS: AST(SGOT) 14 U/L (15-37); Alanine Aminotransfer ALT/SGPT 18 U/L (13-56); Creatinine, Serum 0.43 mg/dL (0.55-1.02); EST Glomerular Filtration Rate 174 mL/min (>60); Est Glom Filt Rate - Afr Amer 210 mL/min (>60); Estimated Creatinine Clearance 150.18 ml/min; Uric Acid 4.8 mg/dL (2.6-6.0)
[2023-01-07 16:30] LABS: Prothrombin Time (Protime)PT. 13.5 SECONDS (11.7-14.9)
[2023-01-07 16:31] LABS: Fibrinogen 500 mg/dl (203-444)
[2023-01-07 16:36] LABS: Protein, Urine (Random) < 6.0 mg/dL (<11.9)
[2023-01-07 16:50] LABS: Bacteria 1+ /hpf (None Seen); Squamous Epithelial Cells - UA 5-10 SEEN /hpf (5-10)
[2023-01-07 16:50] LABS: LDH 158 U/L (84-246)
[2023-01-07] MEDS: Lactated Ringers 1,000 ML 999 ML IV ×2 (17:00→18:27)
[2023-01-07] MEDS: Betamethasone/Betamethasone 30 MG/5 ML Vial 12 MG IM (17:12)
[2023-01-07 19:37] VITALS: PULSE 91; O2SAT 95
[2023-01-07 19:42] VITALS: PULSE 89; O2SAT 94
[2023-01-07 19:45] VITALS: TEMP 36.6
[2023-01-07 19:46] VITALS: BP 115/55; PULSE 95
== END 2023-01-07 20:43 | disposition home or self-care (01) ==
LOC: WPOUT 14:51 → WP 14:52
PROVIDERS: Obstetrics & Gynecology; Referring Provider Advanced Practice Midwife; Visit Provider Advanced Practice Midwife
DX: O99.891 Other specified diseases and conditions complicating pregnancy (principal); R10.9 Unspecified abdominal pain; Z3A.33 33 weeks gestation of pregnancy; O09.523 Supervision of elderly multigravida, third trimester; O34.218 Maternal care for other type scar from previous cesarean delivery; R76.0 Raised antibody titer; O99.213 Obesity complicating pregnancy, third trimester; O99.810 Abnormal glucose complicating pregnancy
CPT/HCPCS: 96360; 96361; 96372; 36415; 59025; 59050; 81001; 82565; 82570; 83615; 84156; 84450; 84460; 84550; 85027; 85384; 85610; 86850; 86900; 86901; 99221; J7120; G0378; J0702

== ENCOUNTER 2023-01-08 17:05 | Outpatient (CLI) | payer OTHER, SELFPAY ==
[2023-01-08 17:40] VITALS: BMI 49.0
[2023-01-08] MEDS: Betamethasone/Betamethasone 30 MG/5 ML Vial 12 MG IM (17:52)
--- NOTE | 2023-01-08 19:00 | PCM.PN.BLA ---
Progress Note Tamiko Turner is a 42 yr old at 34.1 weeks gestation here for celestone injection. Procedures Urinary/Genital [id number]: No Charge
== END 2023-01-08 18:10 | disposition home or self-care (01) ==
LOC: WPOUT 17:10 → WP 17:11
PROVIDERS: Visit Provider Advanced Practice Midwife
DX: O36.8130 Decreased fetal movements, third trimester, not applicable or unspecified (principal); Z3A.34 34 weeks gestation of pregnancy; O60.03 Preterm labor without delivery, third trimester
CPT/HCPCS: 96372; 99221; G0378; J0702

== ENCOUNTER 2023-01-10 10:00 | Inpatient (IN) | payer SELFPAY, OTHER ==
[2023-01-10] VITALS (18 sets, daily range): BP systolic 97–124; BP diastolic 42–71; PULSE 14–86; RESP 14–16; TEMP 35.8–37; O2SAT 66–97; BMI 53.1
--- NOTE | 2023-01-10 07:17 | US_ITS ---
HISTORY: Non-reactive NST. TECHNIQUE: Transabdominal pelvic ultrasound was performed. 35 images. COMPARISON: 12/15/2022. FINDINGS: INTRAUTERINE GESTATION(s): Single. PRESENTATION: Transverse, head to maternal left. PLACENTA: Fundal, grade 1. No placenta previa. HEART MOTION: 131 bpm. AMNIOTIC FLUID INDEX (LEATHA): 13.4 cm. Largest fluid pocket 4.7 cm. BIOPHYSICAL PROFILE (BPP): 6/8 -- Breathin/2. -- Movement: 2/2. -- Tone: 2/2. --LEATHA: 2/2. US/Biophysical Prof W/O Non Stres IMPRESSION: Single living intrauterine currently in transverse presentation with a 6/8 biophysical profile score with 0/2 for breathing. Electronically Signed: Arlyn Last MD at 10:06 EDT ,
--- NOTE | 2023-01-10 10:19 | HP.PCM.OB_ITS ---
HPI - General General Date of Admission: 01/10/23 HPI Narrative GIORGI HURLEY, is a 42 @ 34 weeks 3 days who presents to L&D with decreased movement. NST was not reactive x 2 hours and a bpp showed a 6/8, however movement was elicited by pushing on the patient's abdomen and did not occur until the last minute of the bpp As per discussion with the it applications analyst MFM, this should really be treated as a 4/10 bpp due to the length of time it took to get to any kind of movement and to proceed with delivery. Patient continues to not feel movement. This weekend she as in for contraction pain that was resolved by 2 liter fluid bolus. Giorgi has had 2 prior sections, this baby is transverse lie and she is requesting a bilateral tubal ligation or salpingectomy to prevent further pregnancies. Maternal Data Information MERI Calculator Estimated Delivery Date Method Current WG Current Estimate 02/18/23 LMP (Certain) 34w 3d PFSH PFSH Medical History Anemia affecting Home Medications bee pollen 550 mg capsule mg PO 09/12/22 [History Last Taken Unknown] docosahexaenoic acid 200 mg capsule ( DHA) mg PO 09/12/22 [History Last Taken Unknown] multivitamin 1 tab PO DAILY 09/12/22 [History Last Taken Unknown] Allergy/AdvReac Type Severity Reaction Status Date / Time No Known Allergies Allergy Verified 01/07/23 14:59 Family History Mother Breast cancer Surgical History delivery delivered History of delivery Social History Smoking Status: Never smoker alcohol intake: never substance use type: does not use caffeine: Yes Type: tea what type of physical activity do you participate in: none seatbelt use: always do you feel safe at home: Yes additional social history: Katharina History 17 Elective abortions 0 Hx Para 6 Spontaneous abortions 12 Hx # Term Pregnancies 6 Ectopic pregnancies 0 Hx # Pregnancies 0 Multiple births 0 # of living children 6 Past Pregnancies Del. Date Name GA/Weeks Outcome Route Bth Weight Gen Labor Lgth Anesthesia Del Locatn Provider FOB Unknown 2018 Dalila 42 live - full term Female [facility] SM SM Unknown 2005 still still Unknown 2006 Amadou 42 live - full term Female [place] Unknown 2006 Janice 37 live - full term [place] Unknown 2010 Coby 40 live - full term Female [facility] Unknown 2012 Alize 42 live - full term Female [facility] Valery Scott 06/12/20 Pollo 39 live - full term Male ep idural [facility] GP Delivery Date: 06/12/20 Last Updated by: Radha Wolf Admitted in active labor for TOLAC; R C/S done due to Cat 2 tracing. Visit Details Expected Delivery Route/Plan RLTCS and BS with SM on 02/13 at 39 unless IAL TOLAC patient counseled regarding risks/benefits of trial of labor versus repeat . ACOG/uptodate education given to patient. [] % likelihood of success per calculator TOLAC consent form signed: [] Plans Covid status:declined Flu vaccine: declined Tdap vaccine: declined Rhogam: na LARC form signed: [] movement and labor precautions reviewed. Problem list reviewed and updated with the most current plan of care details and appropriate orders placed. Relevant counseling for the gestational age provided. Continue routine care and follow up unless otherwise noted in visit notes/problem list details OB Flowsheet Initial Weight: Not Recorded Date -?-?-?-?-?-?-?-?-?-?-?-?- EGA Weight BP Urine Prot -?-?-?-?-?-?-?-?-?-?--?-?- Glucose FHR FuHt Pres Dilation -?-?-?-?-?-?-?-?-?-?-?-?- Effaced St Visit Note 09/12/22 -?-?-?-?-?-?-?-?-?-?-?-?- 17w 2d 285 lb 2 oz 115/73 -?-?-?-?-?-?-?-?-?-?-?-?- 150 -?-?-?-?-?-?-?-?-?-?-?-?- SM- no vb lof US today 10/14/22 -?-?-?-?-?-?-?-?-?-?-?-?- 21w 6d 292 lb 126/75 Negative -?-?-?-?-?-?-?-?-?-?-?-?- Negative 138 -?-?-?-?-?-?-?-?-?-?-?-?- LC- no vb/crampi ng. will schedule anatomy scan. low lying placenta, pelvic rest. compression socks for LE edema. 11/24/22 -?-?-?-?-?-?-?-?-?-?-?-?- 27w 5d 301 lb 100/50 Negative -?-?-?-?-?-?-?-?-?-?-?-?- Negative 145 34 -?-?-?-?-?-?-?-?-?-?-?-?- SM- co vaginal i tching and discharge. she co odor with it, no regular ctx. SM- co vaginal itching and d ischarge. she co odor with it, no regular ctx. bv swab 12/15/22 -?-?-?-?-?-?-?-?-?-?-?-?- 30w 5d 306 lb 8 oz 107/69 Nega tive -?-?-?-?-?-?-?-?-?-?-?-?- Negative 140 35 -?-?-?-?-?--?-?-?-?-?-?-?- SM- no vb lof go od fm n oregular ctx repeat US today, missed draw time for 12/29/22 -?-?-?-?-?-?-?-?-?-?-?-?- 32w 5d 312 lb 2 oz 122/80 Nega tive -?-?-?-?-?-?-?-?-?-?-?-?- Negative 140 36 -?-?-?-?-?-?-?-?-?-?-?-?- JV- nst reactive . last growth on 12/20 was normal. plan for weekly growths due to morbid obesity and weekly nsts. JV- nst reactive. last growt h on 12/20 was normal. plan for weekly growths due to morbid obesity and weekly nsts. gct was pending at time of visit but returned abnormal after left pt does not have a phone. will need to inform them next visit. 01/04/23 -?-?-?-?-?-?-?-?-?-?-?-?- 33w 4d 313 lb 6 oz 120/71 Nega tive -?-?-?-?-?-?-?-?-?-?-?-?- Negative 145 -?-?-?-?-?-?-?-?-?-?-?-?- JV- reactive nst . 3 hr gtt was ordered. pt will do this when returns next week. has transportation issues. plan to rpt growth scan January. ROS Constitutional Constitutional: Denies change in weight, fatigue, fever(s), headache(s), poor appetite or weakness Eyes Eyes: Denies blurry vision, change in vision, seeing flashes or spots in vision ENT HEENT: Denies dizziness, headache(s), loss taste/smell or sore throat Cardiovascular Cardiovascular: Denies chest pain, dizziness, dyspnea, irregular heart rhythm, leg edema, palpitations, rapid heart rate or vomiting Respiratory/Chest Respiratory/Chest: Denies chest tightness, cough, dyspnea or breast pain Gastrointestinal Gastrointestinal: Denies abdominal pain, anorexia, constipation, cramping, diarrhea, hemorrhoids, vomiting or weight changes Genitourinary Genitourinary: Denies dysuria, flank pain, genital lesions, genital pain, urinary frequency or urinary urgency Musculoskeletal Musculoskeletal: Denies back pain, difficulty walking, joint pain, limited range of motion, muscle cramps or numbness Integumentary Integumentary: Denies lesions or unusual bruising Neurologic Neurologic: Denies abnormal movements, abnormal speech, dizziness, numbness, seizure-like activity or syncope Psychiatric Psychiatric: Denies anxiety, behavioral changes, change in appetite, change in libido, cognitive impairment, confusion, depression, difficulty concentrating, hallucinations or suicidal thoughts Endocrine Endocrinology: Denies excessive sweating, polydipsia or polyuria Hematologic/Lymphatic Hematologic/Lymphatic: Denies easy bleeding, easy bruising or lymphadenopathy Allergic/Immunologic Allergic/Immunologic: Denies itchy eyes, lip swelling, seasonal rhinorrhea, rhinitis, throat swelling, tongue swelling, eczemia, wheezing or asthma Vital Signs Vital Signs Vital Signs: 01/10/23 06:06 01/10/23 06:06 01/10/23 06:06 Temperature Temperature Source Pulse Rate 81 Blood Pressure 124/58 H BP Systolic 124 BP Diastolic 58 Pulse Ox 91 01/10/23 06:05 01/10/23 06:05 01/10/23 06:05 Temperature 97.7 F L Temperature Source Temporal Pulse Rate Blood Pressure BP Systolic BP Diastolic Pulse Ox 94 01/10/23 07:27 01/10/23 07:27 01/10/23 07:27 Temperature 97.9 F Temperature Source Pulse Rate 78 Blood Pressure 101/55 L BP Systolic 101 BP Diastolic 55 Pulse Ox 01/10/23 07:26 01/10/23 07:26 01/10/23 07:26 Temperature Temperature Source Temporal Pulse Rate 80 Blood Pressure BP Systolic BP Diastolic Pulse Ox 96 01/10/23 07:26 Temperature 97.8 F Temperature Source Pulse Rate Blood Pressure BP Systolic BP Diastolic Pulse Ox Weight Weight: 310 lb Body Mass Index (BMI) 53.1 Physical Exam Const alert, oriented x3, no apparent distress and healthy appearing General Appearance: cooperative; Negative for anxious HEENT normocephalic Face and Sinus: normal facial exam Eyes EOMs intact bilaterally and no scleral icterus General Eye: normal appearance of both eyes Neck full ROM and supple Lymph Lymphatic: no lymphadenopathy noted Chest Chest: abnormal inspection of the chest Resp normal respiratory effort Effort and Inspection: able to speak in complete sentences Cardio regular rate GI soft to palpation and non-tender Inspection: gravid Palpation: soft; Negative for tender Back/Spine no CVA tenderness Extremity normal to inspection, full ROM and no clubbing, cyanosis or edema General Extremity: Negative for calf tenderness or edema Skin Lesions: no lesions Rashes: no rashes Psych mental status grossly normal Labs Labs Labs: Blood Type O POSITIVE Antibody Screen POSITIVE Hct 31.8 % (37-47) L Hgb 10.3 g/dL (12.0-15.0) L Obstetrics US Syphilis Total Ab Non-reactive Rubella IgG Antibody Reactive (Nonreactive) Hep Bs Antigen Non-Reactive (Nonreactive) Chlamydia DNA (MARLEN) Negative (Negative) Neisseria gonorrhoeae DNA (MARLEN) Negative (Negative) HIV 1&2 Antibody Non-Reactive (Nonreactive) Glucose 1 Hr 50 gm 159 mg/dL (70-140) H Rhogam given: No Miscellaneous Test Assessment & Plan (1) Abdominal pain affecting : (2) Abnormal glucose affecting : COMMENT: failed 1 hour. needs 3 hour (3) Vaginal bleeding during , antepartum: COMMENT: presented to L&D on 12/03/22 for bleeding that was noted on 12/01/22. no bleeding on exam, copious amount of vaginal yeast noted. (4) Obesity affecting : COMMENT: encourage healhty weight gain (5) Red blood cell antibody positive: COMMENT: unsure antibody reactivity, has had in past positive, draw further titers and clarification at next visit (6) History of recurrent miscarriages: COMMENT: APL panel neg (7) History of stillbirth in currently patient: COMMENT: APL panel neg, weekly nsts after 32 for ama and stillbirth (8) Previous delivery affecting : COMMENT: x 2 breech and NRFHTs, plan TOLAC. 4 successful VBACs in between, plan RLTCS at 39 with BS unless active labor prior RLTCSBS scheduled for 02/13 with SM @ 7:30 (9) Supervision of high-risk : COMMENT: PRR MERI 02/18/23 PC amadou gavin joas, katie, amelia, pollo katharina (10) AMA (advanced maternal age) multigravida 35+: COMMENT: genetic counseling provided, growth q 4 weeks. weekly nsts after 32 (11) : QUALIFIERS: Weeks of gestation: 33 weeks Qualified Code(s): Z3A.33 - 33 weeks gestation of COMMENT: PRR. declined genetic and carrier screening late to care- obtain CBC/ serology around 32 weeks (12) Non-reassuring electronic monitoring tracing: PLAN: Plan After discussing the patient's diagnosis and treatment plan options, patient wishes to proceed with surgical management. I have discussed with the patient the risks, benefits, and alternatives of the procedure which include but are not limited to risks of anesthesia, bleeding, infection, possible damage to bowel, bladder, or surrounding vasculature which could lead to additional surgery to evaluate any complications. Patient agrees to procedure and wishes to proceed with repeat section and bialteral salpingectomy bpp 08/22 - plan to proceed with delivery BON. anesthesia aware, charge nurse aware. 2 iv's needed stat 3 grams ancef now plan for txa at cord clamp per blood bank it will take at least 1 day to receive blood products from [facility] due to abnormal antibody
[2023-01-10] MEDS: Lactated Ringers 1,000 ML 999 ML IV (10:28)
[2023-01-10] MEDS: 0.9% Saline Lock 10 ML Syringe IV ×2 (10:42→18:36)
[2023-01-10 10:44] LABS: Hematocrit 32.4 % (37-47); Hemoglobin 10.5 g/dL (12.0-15.0); Mean Corp Hgb Conc 32.4 g/dL (32-36); Mean Corpuscular Hgb 28.8 pg (27.0-32.0); POSITIVE COUNT YES; POSITIVE MORPHOLOGY YES; Platelet Count 242 K/mm3 (150-450); RBC Distribution Width CV 14.7 % (11.6-14.6); RBC Distribution Width SD 46.9 fl (35.1-43.9); Red Blood Count 3.64 M/mm3 (4.2-5.4); White Blood Count 6.7 K/mm3 (4.4-11.0)
[2023-01-10] MEDS: Acetaminophen 500 MG Tablet 1000 MG PO ×3 (10:44→23:05)
[2023-01-10 10:45] LABS: Differential Indicated MANUAL DIFF
[2023-01-10] MEDS: Sodium Citrate/Citric Acid 30 ML UDC PO (10:45)
[2023-01-10 11:31] LABS: Syphilis Antibodies Non-reactive
[2023-01-10 11:46] LABS: Lymphocyte 34 % (19-41); Monocyte 5 % (0-10); Myelocyte 1 % (0-0); Neutrophil-Segmented 60 % (47-70); Total Cells Counted 100 (MANUAL DIFF)
[2023-01-10 11:47] LABS: Platelet Estimate ADEQUATE (ADEQ); Red Cell Morphology NORM C+C NORMAL (NORM C&C)
--- NOTE | 2023-01-10 11:53 | EX.PCM.OBRPT ---
Assessment & Plan (1) Non-reassuring electronic monitoring tracing: (2) Abdominal pain affecting : (3) Abnormal glucose affecting : COMMENT: failed 1 hour. needs 3 hour (4) Vaginal bleeding during , antepartum: COMMENT: presented to L&D on 12/03/22 for bleeding that was noted on 12/01/22. no bleeding on exam, copious amount of vaginal yeast noted. (5) Obesity affecting : COMMENT: encourage healhty weight gain (6) Red blood cell antibody positive: COMMENT: unsure antibody reactivity, has had in past positive, draw further titers and clarification at next visit (7) History of recurrent miscarriages: COMMENT: APL panel neg (8) History of stillbirth in currently patient: COMMENT: APL panel neg, weekly nsts after 32 for ama and stillbirth (9) Previous delivery affecting : COMMENT: x 2 breech and NRFHTs, plan TOLAC. 4 successful VBACs in between, plan RLTCS at 39 with BS unless active labor prior RLTCSBS scheduled for 02/13 with SM @ 7:30 (10) Supervision of high-risk : COMMENT: PRR MERI 02/18/23 PC amadou gavin joas, katie, anisha, pollo posadas (11) AMA (advanced maternal age) multigravida 35+: COMMENT: genetic counseling provided, growth q 4 weeks. weekly nsts after 32 (12) : QUALIFIERS: Weeks of gestation: 33 weeks Qualified Code(s): Z3A.33 - 33 weeks gestation of COMMENT: PRR. declined genetic and carrier screening late to care- obtain CBC/ serology around 32 weeks Maternal Data Information MERI Calculator Estimated Delivery Date Method Current WG Current Estimate 02/18/23 LMP (Certain) 34w 3d Final MERI: 02/18/23 Final MERI Source: LMP Gestational age: 34 weeks 3 days Details Operative Information Date of Procedure: 01/10/23 Pre-Operative Diagnosis: 42 y/o @ 34 weeks 3 days, decreased movement, prior sections, non-reactive NST, BPP 4/8, desires sterilization Post-Operative Diagnosis: 42 y/o @ 34 weeks 3 days, decreased movement, prior sections, non-reactive NST, BPP 4/8, desires sterilization Classification: BON Procedure Type: low transverse (with bilateral salpingectomy ) law firm partner #1: Amy Burns law firm partner #2: Gladis Umanzor Type of Anesthesia: Spinal Anesthesiologist: Tommie Sanchez Antibiotic Given: Ancef 3 grams IV x1 Drain: Gil to straight drain Estimated Blood Loss: 300cc Findings Description of Procedure: Tamiko Thomas is a 42-year-old morbidly obese, who presented to labor and delivery for the third time since Monday of this week with decreased movement. An NST was performed for 2 hours and did not meet criteria to be reactive. Biophysical profile was ordered and was found to have movement at the 29th minute and was elicited by senior [employer] administrator moving the baby. There were points off for no breathing. [facility] maternal- medicine was consulted and due to the late and minimal finding of movement on the biophysical profile was deemed to be 4 out of 8 and delivery was recommended. Spinal anesthesia was placed without difficulty. Gil catheter was placed. The patient was placed in the dorsal supine position with leftward tilt. Patient was prepped and draped in the normal sterile fashion. Pfannenstiel skin incision was made with the scalpel and carried through to the underlying layer of fascia with the scalpel. Fascia was nicked in the midline and the incision extended laterally. The rectus bellies were dissected off superiorly and inferiorly with out complication both sharply and bluntly. The peritoneum was entered digitally. The incision was stretched and a low transverse uterine incision was made with the scalpel. The 's head was delivered atraumatically followed by the anterior and posterior shoulders without complication the rest of the infant delivered. The cord was clamped and cut and the infant was handed off to awaiting nurse. The placenta was delivered spontaneously immediately following and was noted to be intact and have a three-vessel cord. The uterus was exteriorized cleared of all clots and debris, and the incision was closed in a double layer closure using #1 vicryl and #1 Monocryl. The ovaries and fallopian tubes were noted to be within normal limits. The right fallopian tube was grasped with a Kate clamp and the underlying mesosalpinx was cauterized and cut from the fimbriated end to the cornua of the uterus, removing the tube in its entirety. The same procedure was performed on the left side and both tubes were passed off for pathology analysis. The uterus was returned to the maternal abdomen and gutters were cleared of all clots and debris. The peritoneum was closed with 3-0 Monocryl in a running fashion. Fascia was closed with 0 PDS in a running fashion. Subcutaneous tissue was copiously irrigated and the skin was closed with 3-0 Monocryl in a subcuticular fashion. Mepilex dressing was applied without complication. Patient was taken to recovery in stable condition. Presentation: Positive for Vertex Amniotic Membrane Rupture Type: Spontaneous Amniotic Fluid Description: Clear Placental Delivery Description: Manual Removal Placenta Disposition: [facility] Cord Vessel Description: 3 Vessels Cord Entanglement: None Cord Gases: ABG and VBG A Gender: Female (1 minute): 8 (5 minute): 9 Delayed Cord Clamping: Yes Complications Risks of Surgery Discussed w/Patient: Bleeding, Anesthesia Risks, Infection, Need for Future C-Sections, Permanency, Failure Rate of 1 to 2%, Injury to surrounding structure(s) including bowel and bladder and Availability of other non-permanent control options Complications: none Multi Select Codes Urinary/Genital Urinary/Genital CPT Codes: 98110 Delivery global pkg and Other Procedure See Report (bilateral salpingectomy )
[2023-01-10] MEDS: Oxytocin 15 Units/NS 250ml 15 UNITS/250 ML IV.SOLN 83 UNITS IV (12:13)
[2023-01-10] MEDS: Ketorolac 30 MG/ML Syringe IV ×2 (12:13→18:36)
[2023-01-10] MEDS: Lactated Ringers 1,000 ML 100 ML IV (12:13)
--- NOTE | 2023-01-10 13:00 | FALS_PTH ---
PATIENT: GIORGI HURLEY LOC: WP U#:[id number] AGE/SX: 42/F ROOM: WP002 RE01/10/[address]: Dr. Madeline Darling DO : 1980 BED: 1 DIS: 01/13/2023 SPEC #: [id number] RECD: 01/11/23 10:55 STATUS: ALL IVIS #: [id number] DEIDRE: 01/10/23 13:[address]: Madeline Darling DEPT: SURGICAL PATHOLOGY RECD BY: Tara Ramirez ENTERED: 01/11/23 10:55 SP TYPE: FALL TUBES OTHR DR: No Primary Care Phys Tissues: Fallopian tube Procedures: Surgery Specimen Level II HEADER OPERATION: Tubal ligation PRE-OP DIAGNOSIS: Sterilization TISSUE SUBMITTED: Fallopian tubes MICROSCOPIC DIAGNOSIS Bilateral fallopian tubes, salpingectomy: Bilateral fallopian tubes, no pathologic diagnosis. TATIANA:santa 01/12/2023 MICROSCOPIC DESCRIPTION Slides are reviewed. GROSS DESCRIPTION Received in fixative is one container labeled with the patient's name and designated bilateral fallopian tubes, stitch left tube. The specimen consists of bilateral fallopian tubes including fimbrial ends. The right fallopian tube measures 9.0 cm in length and up to 0.9 cm in diameter and left fallopian tube measures 6.5 cm in length and up to 1.0 cm in diameter. Sections reveal unremarkable cut surfaces. Relationship Banker sections are submitted in two cassettes as follows: 1 - right fallopian tube, 2 - left fallopian tube. / SJ:santa 01/11/2023 TC:4 CPT: 27459 x2
--- NOTE | 2023-01-10 14:01 | NURSING ---
Assisted mother in initiation of pumping with double electric breast pump. Did very well. explained use of pump how to clean pump, frequency and settings. Mother indicates understanding was able to pump 3 syringe fulls for baby in SCN
[2023-01-10] MEDS: HYDROmorphone 1 MG/ML Syringe IV ×2 (14:02→17:18)
[2023-01-10 14:56] LABS: Pathology Specimen OB SEE PATHOLOGY REPORT
[2023-01-10] MEDS: Enoxaparin 40 MG/0.4 ML Syringe SC (23:05)
[2023-01-11] MEDS: Ketorolac 30 MG/ML Syringe IV ×2 (00:32→06:34)
[2023-01-11] MEDS: 0.9% Saline Lock 10 ML Syringe IV ×2 (00:33→06:34)
[2023-01-11 00:38] VITALS: BP 116/56; PULSE 63; RESP 16; TEMP 36.9; O2SAT 96
[2023-01-11 04:38] VITALS: BP 104/56; PULSE 64; RESP 16; TEMP 36.8; O2SAT 97
[2023-01-11] MEDS: Acetaminophen 500 MG Tablet 1000 MG PO ×4 (05:04→23:59)
[2023-01-11 05:43] LABS: Hematocrit 30.4 % (37-47); Hemoglobin 9.8 g/dL (12.0-15.0); Mean Corp Hgb Conc 32.2 g/dL (32-36); Mean Corpuscular Hgb 29.2 pg (27.0-32.0); Mean Corpuscular Volume 90.5 fL (81-99); Mean Platelet Vol. 9.9 fl (6.2-12.0); Platelet Count 220 K/mm3 (150-450); RBC Distribution Width CV 14.9 % (11.6-14.6); RBC Distribution Width SD 48.9 fl (35.1-43.9); Red Blood Count 3.36 M/mm3 (4.2-5.4); White Blood Count 7.6 K/mm3 (4.4-11.0)
--- NOTE | 2023-01-11 07:44 | PCM.PN.OB ---
Subjective Subjective Patient doing well without complaints. Tolerating PO. Gil cath now out. Moving well per self, states pain is well controlled. . Feeding well. Denies chest pain, shortness of breath, calf pain/swelling, fevers, chills, lightheadedness. Objective Data Objective Data Vital Signs: Vital Signs Temp Pulse Resp BP Pulse Ox O2 Del Method 98.2 F 64 16 104/56 L 97 Room Air 01/11/23 04:38 01/11/23 04:38 01/11/23 04:38 01/11/23 04:38 01/11/23 04:38 01/11/23 04:38 Oxygen Delivery Method Room Air Weight: 310 lb Body Mass Index (BMI) 53.1 Intake & Output: Intake and Output for Last 24 Hours 01/09/23 01/10/23 01/11/23 23:59 23:59 23:59 Intake Total 1232.93 / 1232.93 938.33 / 938.33 Output Total 750 / 750 750 / 750 Balance 482.93 / 482.93 188.33 / 188.33 Lab / Micro Data 01/11/23 05:35 Labs: Laboratory Results - last 24 hr 01/10/23 10:25: WBC 6.7, RBC 3.64 L, Hgb 10.5 L, Hct 32.4 L, MCV 89.0, MCH 28.8, MCHC 32.4, RDW Std Deviation 46.9 H, RDW Coeff of Jennifer 14.7 H, Plt Count 242, MPV 10.0, Neut % (Auto) Not Reportable, Absolute Neuts (auto) 4.0, Absolute Lymphs (auto) 2.30, Total Counted 100, Neutrophils % (Manual) 60, Lymphocytes % (Manual) 34, Monocytes % (Manual) 5, Myelocytes % 1 H, Diff Path Review May , Platelet Estimate ADEQUATE, RBC Morphology NORM C+C, Syphilis Total Ab Non-reactive, Blood Type O POSITIVE, Antibody Screen POSITIVE 01/11/23 05:35: WBC 7.6, RBC 3.36 L, Hgb 9.8 L, Hct 30.4 L, MCV 90.5, MCH 29.2, MCHC 32.2, RDW Std Deviation 48.9 H, RDW Coeff of Jennifer 14.9 H, Plt Count 220, MPV 9.9 Radiography Diagnostic Testing: Radiology Impression Biophysical Profile Ultrasound 01/10/23 07:17 IMPRESSION: Single living intrauterine currently in transverse presentation with a 6/8 biophysical profile score with 0/2 for breathing. Electronically Signed: Arlyn Last MD at 10:06 EDT Reading Location ID and State: [facility] / [place] Tel , Service support , Physical Exam Const alert and oriented x3 HEENT normocephalic Eyes PERRL Neck full ROM Resp normal respiratory effort GI soft to palpation GI Narrative: FF below U. Dressing dry and intact Palpation: tender other (appropriately) Assessment & Plan (1) Status post repeat low transverse section: COMMENT: 01/10/23 VITA PAYAN BS at 34 wk. Krystyna (2) H/O bilateral salpingectomy: (3) Red blood cell antibody positive: COMMENT: unsure antibody reactivity, has had in past positive, draw further titers and clarification at next visit PLAN: Plan s/p LTCS PPD # 1 1. routine post care 2. breast feeding- support given 3. rh positive 4. rubella immune
[2023-01-11 07:49] VITALS: BP 109/55; PULSE 77; RESP 16; TEMP 36.5; O2SAT 95
[2023-01-11] MEDS: Senna/Docusate Sodium 1 Tablet PO (09:56)
[2023-01-11] MEDS: Enoxaparin 40 MG/0.4 ML Syringe SC ×2 (11:09→23:59)
[2023-01-11] MEDS: Naproxen 500 MG Tablet PO ×2 (12:32→21:01)
[2023-01-11 12:49] LABS: Pathologist Review Reviewed
[2023-01-11 14:20] VITALS: BP 109/40; PULSE 77; RESP 16; TEMP 36.6; O2SAT 94
[2023-01-11 19:41] VITALS: BP 124/52; PULSE 80; RESP 15; TEMP 36.6; O2SAT 95
[2023-01-12 02:03] VITALS: BP 97/46; PULSE 72; RESP 14; TEMP 36.6; O2SAT 96
[2023-01-12] MEDS: Acetaminophen 500 MG Tablet 1000 MG PO ×3 (05:23→17:48)
[2023-01-12] MEDS: Naproxen 500 MG Tablet PO ×3 (05:23→21:05)
[2023-01-12 07:53] VITALS: BP 104/56; PULSE 74; RESP 16; TEMP 36.6; O2SAT 95
--- NOTE | 2023-01-12 08:18 | PCM.PN.OB ---
Subjective Subjective Patient doing well without complaints. Tolerating PO. Ambulating and voiding without difficulty. feeding well. Denies chest pain, shortness of breath, calf pain/swelling, fevers, chills, lightheadedness. Objective Data Objective Data Vital Signs: Vital Signs Temp Pulse Resp BP Pulse Ox O2 Del Method 97.9 F 74 16 104/56 L 95 Room Air 01/12/23 07:53 01/12/23 07:53 01/12/23 07:53 01/12/23 07:53 01/12/23 07:53 01/12/23 07:53 Oxygen Delivery Method Room Air Weight: 310 lb Body Mass Index (BMI) 53.1 Intake & Output: Intake and Output for Last 24 Hours 01/10/23 01/11/23 01/12/23 23:59 23:59 23:59 Intake Total 1232.93 / 1232.93 938.33 / 938.33 Output Total 750 / 750 1050 / 1050 Balance 482.93 / 482.93 -111.67 / -111.67 Lab / Micro Data 01/11/23 05:35 Labs: Laboratory Results - last 24 hr 01/10/23 10:25: Diff Path Review Reviewed ROS Constitutional Constitutional: Reports systems reviewed and no addt'l complaints, except as documented Cardiovascular Cardiovascular: Reports systems reviewed and no addt'l complaints, except as documented Respiratory/Chest Respiratory/Chest: Reports systems reviewed and no addt'l complaints, except as documented Gastrointestinal Gastrointestinal: Reports systems reviewed and no addt'l complaints, except as documented Physical Exam Const alert, oriented x3 and no apparent distress HEENT Head and Scalp: atraumatic Resp normal respiratory effort GI soft to palpation and non-tender Inspection: incision intact, healing well and drainage (none) Bimanual Exam - Vag & Uterus: uterus non-tender Uterus Palpation: uterus fundus firm (below Umbilicus) Assessment & Plan (1) Status post repeat low transverse section: COMMENT: 01/10/23 VITA PAYAN BS at 34 wkJocelyne Greenwood PLAN: Plan s/p LTCS PPD # 2 1. routine post care 2. breast feeding- support given 3. rh positive 4. rubella immune
[2023-01-12] MEDS: Enoxaparin 40 MG/0.4 ML Syringe SC (11:23)
[2023-01-12] MEDS: Senna/Docusate Sodium 1 Tablet PO (11:23)
[2023-01-12 13:08] VITALS: BP 130/65; PULSE 89; RESP 18; TEMP 37.1; O2SAT 96
[2023-01-12 16:28] VITALS: BP 120/55; PULSE 83; RESP 16; TEMP 36.6; O2SAT 95
[2023-01-12 19:50] VITALS: BP 131/57; PULSE 74; RESP 16; TEMP 36.5; O2SAT 95
[2023-01-13] MEDS: Enoxaparin 40 MG/0.4 ML Syringe SC (00:02)
[2023-01-13] MEDS: Acetaminophen 500 MG Tablet 1000 MG PO ×2 (00:02→06:02)
[2023-01-13 02:13] VITALS: BP 130/68; PULSE 66; RESP 18; TEMP 36.1; O2SAT 96
[2023-01-13] MEDS: Naproxen 500 MG Tablet PO (05:11)
--- NOTE | 2023-01-13 08:27 | PCM.PN.OB ---
Subjective Subjective Patient doing well without complaints. Tolerating PO. Ambulating and voiding without difficulty. Feeding well. Denies chest pain, shortness of breath, calf pain/swelling, fevers, chills, lightheadedness. Objective Data Objective Data Vital Signs: Vital Signs Temp Pulse Resp BP Pulse Ox O2 Del Method 97.0 F L 66 18 130/68 H 96 Room Air 01/13/23 02:13 01/13/23 02:13 01/13/23 02:13 01/13/23 02:13 01/13/23 02:13 01/13/23 02:13 Oxygen Delivery Method Room Air Weight: 310 lb Body Mass Index (BMI) 53.1 Intake & Output: Intake and Output for Last 24 Hours 01/11/23 01/12/23 01/13/23 23:59 23:59 23:59 Intake Total 938.33 / 938.33 Output Total 1050 / 1050 Balance -111.67 / -111.67 Lab / Micro Data 01/11/23 05:35 ROS Constitutional Constitutional: Reports systems reviewed and no addt'l complaints, except as documented; Denies anorexia or headache(s) Cardiovascular Cardiovascular: Reports systems reviewed and no addt'l complaints, except as documented; Denies dizziness, dyspnea, nausea or tachypnea Respiratory/Chest Respiratory/Chest: Reports systems reviewed and no addt'l complaints, except as documented; Denies cough, dyspnea, shortness of breath at rest or tachypnea Gastrointestinal Gastrointestinal: Reports systems reviewed and no addt'l complaints, except as documented; Denies abdominal pain, constipation or nausea Genitourinary Genitourinary: Reports systems reviewed and no addt'l complaints, except as documented; Denies burning urination, difficulty urinating, dysuria, urinary frequency or urinary incontinence Musculoskeletal Musculoskeletal: Reports systems reviewed and no addt'l complaints, except as documented Integumentary Integumentary: Reports systems reviewed and no addt'l complaints, except as documented Neurologic Neurologic: Reports systems reviewed and no addt'l complaints, except as documented; Denies abnormal speech, dizziness or headache(s) Psychiatric Psychiatric: Reports systems reviewed and no addt'l complaints, except as documented Endocrine Endocrinology: Reports systems reviewed and no addt'l complaints, except as documented Hematologic/Lymphatic Hematologic/Lymphatic: Reports systems reviewed and no addt'l complaints, except as documented Physical Exam Const alert, oriented x3 and no apparent distress Neck full ROM Resp normal respiratory effort, normal air movement and no retractions Effort and Inspection: able to speak in complete sentences and symmetric chest movement GI soft to palpation Inspection: incision intact Bladder / Kidney Exam: bladder normal to palpation Uterus Palpation: uterus fundus Extremity normal to inspection and full ROM Psych mental status grossly normal, thought process normal and cooperative Assessment & Plan (1) Status post repeat low transverse section: COMMENT: 01/10/23 VITA PAYAN BS at 34 wk. Krystyna PLAN: s/p LTCS PPD # 3 1. routine post care 2. breast feeding- support given 3. rh positive 4. rubella immune 5. Discharge Charges/Coding Multi Select Codes Urinary/Genital Urinary/Genital CPT Codes: No Charge
--- NOTE | 2023-01-13 08:28 | DCINST_ITS ---
Discharge Instructions Diet Discharge Diet: No restrictions Activity Discharge Activity: Return to Normal Activity May resume sexual activity in: 6-8 weeks Dressing / Incision Call your doctor if you observe: Fever of 101 or Higher, Coldness, Increased Pain, Numbness or Tingling, Change in Color, Inability to urinate, Inability to have a bowel movement, Using more than 1 pad per hour, Shortness of breath, Dizziness, Fainting spells, Swelling in the ankles, Chest pain, Increased palpitations (irregular heartbeat), Calf discomfort and Uncontrolled pain Follow Up Care Please Follow Up With: Marisol Dorman CNM When: Please call the office to schedule your follow up appointment in 6 weeks. If you had high blood pressure please call to schedule an appointment in 2 weeks. Test Results: Test results from this visit will be discussed in further detail at your follow- up appointment, if applicable. Discharge Plan Admission Admit Date/Time: 01/10/23 10:00 Attending Provider: Madeline Darling Primary Care Provider: Care Physician,Nikki Primary Discharge Orders/Prescriptions Prescriptions: New acetaminophen 500 mg Tablet 1,000 mg PO Q6H 5 Days Qty: 40 0RF naproxen 500 mg Tablet 500 mg PO Q8H 8 Days Qty: 24 0RF oxycodone 5 mg tablet 5 mg PO Q4H PRN PRN (Reason: Pain Score 4-10) 3 Days Qty: 10 0RF Rx Instructions: take for pain as needed every 4-6 hours No Action DHA 200 mg capsule PO multivitamin Tablet 1 tab PO DAILY bee pollen 550 mg capsule PO Referrals / Follow Up: Care Physician,No Primary [Primary Care Provider] - Disposition Disposition (needs filled in before D/C Order can be placed): Home, Self Care
[2023-01-13 08:45] VITALS: BP 116/63; PULSE 87; RESP 18; TEMP 36.4; O2SAT 96
== END 2023-01-13 09:00 | disposition home or self-care (01) | DRG 783 ==
LOC: WPOUT 10:15 → WP 10:15
PROVIDERS: Obstetrics & Gynecology; Admitting Provider Obstetrics & Gynecology; Referring Provider Obstetrics & Gynecology; Visit Provider Obstetrics & Gynecology
DX: O65.5 Obstructed labor due to abnormality of maternal pelvic organs (principal); O60.14X0 Preterm labor third trimester with preterm delivery third trimester, not applicable or unspecified; O99.214 Obesity complicating childbirth; O26.23 Pregnancy care for patient with recurrent pregnancy loss, third trimester; O34.211 Maternal care for low transverse scar from previous cesarean delivery; O36.8130 Decreased fetal movements, third trimester, not applicable or unspecified; Z37.0 Single live birth; Z3A.34 34 weeks gestation of pregnancy; E66.8 Other obesity
CPT/HCPCS: 36415; 59025; 59050; 76819; 85025; 85027; 86780; 86850; 86870; 86900; 86901; 86902; 88302; 99221; J7120; A4216; G0378; J2405